=== PATIENT | female | born 1945 | race African-American/Black ===

== ENCOUNTER 2016-11-10 22:55 | Inpatient (IN) | payer OTHER, MEDICAID ==
[~2016-11-10] VITALS: Ht 165.1 cm; Wt 81.6 kg
[~2016-11-10 22:55] MED LIST: AMOXIL500 MG PO; ATIVAN1 MG PO; DONNATAL1 CA1 PO; FE-TABS325 MG PO; FLAGYL250 MG PO; GLUCOPHAGE500 MG PO; K-DUR10 MEQ PO; LEVSIN0.125 M3 PO; LISINOPRIL AND1 TA2 PO; LISINOPRIL/HCTZ1 TA2 PO; METFORMIN500 MG PO; NEXIUM40 MG PO; NORCO 10/325 MG1 TAB PO; NORCO 325 MG-51 TAB PO; PANCREASE PO; POTASSIUM CHLOR8 MEQ PO; PREMARIN0.625 M1 PO; PREVACID15 MG PO; PROTONIX TR40 MG PO; PROTONIX40 MG PO; RESTORIL30 MG PO; SOMA350 M1 PO; SOMA350 MG PO; VICODIN 5/500 M1 TAB PO; VICODIN ES 7501 TA1 PO; VICODIN-ES1 TAB PO
--- NOTE | 2016-11-10 23:14 | NUR ---
Dr. Oh evaluating patient
[2016-11-10 23:15] VITALS: BP 141/65
[2016-11-10] MEDS ORDERED: NACL 0.9% 1,000 ML IV SCH (23:16)
--- NOTE | 2016-11-10 23:18 | NUR ---
PT TAKEN TO BED 3
[2016-11-10] MEDS ORDERED: FAMOTIDINE 20 MG/2 ML VIAL IVP ONE (23:20)
[2016-11-10] MEDS ORDERED: ONDANSETRON 4 MG/2 ML VIAL IVP ONE (23:20)
--- NOTE | 2016-11-10 23:27 | NUR ---
PT IS 71Y F BIB SELF C/O AB PAIN X 3 DAYS WITH DIARRHEA. ABDOMINAL PAIN IS 10/10 PAIN. HX OF IBS, HIATAL HERNIA, DM, CHRONIC PANCREATITIS
--- NOTE | 2016-11-10 23:33 | NUR ---
X-Ray at bedside.
[2016-11-11] MEDS ORDERED: HYDROmorphone 1 MG/ML AMP IVP ONE (00:15)
--- NOTE | 2016-11-11 00:20 | NUR ---
Pt report given to CLARIZE RN. Transfer of care at this time.
--- NOTE | 2016-11-11 00:58 | NUR ---
CALLED MED-SURG FOR TO GIVE REPORT, NURSE WILL CALL BACK.
--- NOTE | 2016-11-11 01:00 | NUR ---
Patient will be admitted to care of DR. Hodan GUTIERREZ. Admited to MED-SURG. Will go to room 110B. Belongings list completed. Report GIVEN TO TIARRA GARCIA.
--- NOTE | 2016-11-11 01:02 | NUR ---
PT TRANSFERRED TO FLOOR VIA GURNEY ACCOMPANIED BY EMT, ON GUARDED CONDITION, VSS AT THIS TIME.
[2016-11-11 01:05] VITALS: BP 145/84
--- NOTE | 2016-11-11 01:05 | NUR ---
[facility] A 71 y/o ,Female, Appropriate. ALERT AWAKE ORIENTED X4. INITIAL ASSESSMENT DONE. NO S/S OF RESPIRATORY DISTRESS OR SOB NOTED. C/O ABDOMINAL PAIN SCALING 7/10. MEDICATED IN ER DILAUDID IVP. SKIN IS INTACT CLEAN DRY AND WARM TO TOUCH. PLAN OF CARE REVIEWED TO PT AND VERBALIZED UNDERSTANDING. oriented to call light, bed, phone,television, bathroom, smoking policy, visiting hours, procedures, ID bracelet on. Belongings list checked. CALL LIGHT WITHIN REACH. WILL CONTINUE TO MONITOR.
[2016-11-11] MEDS ORDERED: HYDROmorphone 1 MG/ML AMP IVP PRN (03:40)
[2016-11-11] MEDS ORDERED: LORazepam 1 MG TAB PO PRN (03:45)
[2016-11-11] MEDS ORDERED: DEXTROSE 50% 50 ML SYR IVP PRN (03:45)
[2016-11-11] MEDS ORDERED: ONDANSETRON 4 MG/2 ML VIAL IVP PRN (03:45)
[2016-11-11] MEDS ORDERED: ACETAMINOPHEN 325 MG TAB PO PRN (03:45)
[2016-11-11] MEDS ORDERED: HYDROcodone/APAP 5/325 MG 1 TAB TAB PO PRN (03:45)
[2016-11-11] MEDS ORDERED: HYDROcodone/APAP 10/325 MG 1 TAB TAB PO PRN (03:45)
[2016-11-11] MEDS: DEXT 5% /NACL 0.9% 1,000 ML IV SCH ×3 (04:37→23:00)
[2016-11-11] MEDS: HYDROmorphone 1 MG/ML AMP IVP PRN ×5 (04:38→21:19)
--- NOTE | 2016-11-11 05:30 | NUR ---
AM CARE RENDERED. BED LINEN CHANGED. INSTRUCTED PT TO REPOSITION. KEPT CLEAN AND DRY. CALL LIGHT WITHIN REACH. WILL CONTINUE TO MONITOR.
[2016-11-11] MEDS: PANTOPRAZOLE 40 MG TABEC PO SCH (05:48)
[2016-11-11] MEDS: INSULIN ASPART SLIDING SCALE 100 UNITS/ML VIAL SUBQ PRN ×2 (06:41→18:46)
[2016-11-11] MEDS: BLOOD GLUCOSE MONITORING 1 DEV DEV FS SCH ×4 (06:41→20:21)
--- NOTE | 2016-11-11 07:17 | NUR ---
PT HAS NO S/S OF ANY DISCOMFORT. PLAN OF CARE ENDORSED TO TANIA MAYEN AT BEDSIDE FOR CONTINUITY OF CARE.
--- NOTE | 2016-11-11 07:18 | NUR ---
RECEIVED REPORT FROM THE LOCOMOTIVE OILER NURSE AT BEDSIDE. PT IS AWAKE AND ALERT. I INTRODUCED MYSELF AND UPDATED THE BOARD. PT IS HAS AN IV ON L THUMB 24 G , NS @ 100ML. I DID NOTE THAT SHE IS NOT TO HAVE ANY BP OR BLOOD DRAWN ON THE R ARM. PT DOES NOT HAVE A SHUNT ON HER ARM AND IS NOT A DIALYSIS PT. WILL FURTHER INVESTIGATE. WILL CONTINUE TO MONITOR PT. ALL SAFETY MEASURES IN PLACE.
[2016-11-11 08:00] VITALS: BP 116/58
[2016-11-11] MEDS ORDERED: metFORMIN 500 MG TAB PO SCH (08:00)
--- NOTE | 2016-11-11 08:00 | NUR ---
PTS V/S IS IN WITHIN RANGE. PT IS C/O OF CONSTANT PAIN SINCE SHE'S BEEN HERE. WANTED TO SEE IF WE CAN UP THE DOSAGE ON THE DILAUDID. WILL TALK TO THE WHEN HE COMES IN. ACCORDING TO THE MACHINE MAINTENANCE REPAIRER NURSE, SHE LAST HAD HER DILAUDID AT 0438. SHE IS DUE AT 0838. PT SKIN IS INTACT. WILL GIVE ACCORDING TO SCHEDULE. PT MORNING TRAY IS HERE. WILL CONTINUE TO MONITOR PT.
[2016-11-11] MEDS: AMYLASE/LIPASE/PROTEASE 1 CAPDR PO SCH ×3 (08:39→17:24)
--- NOTE | 2016-11-11 08:40 | NUR ---
ADMINISTERED MORNING MEDS. PT C/O HAVING SEVERE PAIN, NOT GETTING BETTER SINCE BEING IN THE ER. LEVEL AT 06/01 SOMETIMES 07/01. I ADMINISTERED 1MG OF DILAUDID. PT SAID THAT SHE NEEDS MORE BC IT DOESN'T BRING THE PAIN LEVEL DOWN. I TOLD HER I WILL TALK TO HER
[2016-11-11] MEDS ORDERED: HYDROCHLOROTHIAZIDE 25 MG TAB PO SCH (09:00)
[2016-11-11] MEDS ORDERED: LISINOPRIL 20 MG TAB PO SCH (09:00)
[2016-11-11] MEDS ORDERED: [UNRECOGNIZED DRUG - OTHER] PO SCH (09:00)
--- NOTE | 2016-11-11 09:00 | NUR ---
SPOKE TO FRANCISCO J, CHARGE NURSE ABOUT HER SITUATION. TO SEE IF I SHOULD PAGE DR. GUTIERREZ. FRANCISCO J STATED THAT DR. Kirti OLIVEROS WILL BE COMING TO CONSULT FOR HER ABDOMINAL PAIN. WE WILL ADDRESS HER PAIN SITUATION WHEN HE ARRIVES.
--- NOTE | 2016-11-11 09:19 | NUR ---
PATIENT HAS BEEN SCREENED AND CATEGORIZED MODERATE NUTRITION RISK. PATIENT WILL BE SEEN WITHIN 3-5 DAYS OF ADMISSION. 11/12/16-11/14/[address]
--- NOTE | 2016-11-11 11:52 | NUR ---
PT C/O ANXIETY. WOULD LIKE HER ATIVAN. I ADMINISTERED 1 MG. WILL CONTINUE TO MONITOR HER.
--- NOTE | 2016-11-11 12:05 | NUR ---
DR. Kirti OLIVEROS CALLED. PT SHOULD BE NPO. WILL UPDATE STATUS. HE IS STILL ON HIS WAY TO SEE PT.
--- NOTE | 2016-11-11 13:30 | NUR ---
DR. OLIVEROS CAME AN SAW PT.
--- NOTE | 2016-11-11 14:30 | NUR ---
SPOKE TO DR. OLIVEROS ABOUT PAIN MANAGEMENT. ASKED ABOUT WHAT WE CAN DO FOR HER PAIN. ADVISED NOTHING AT THIS TIME. MAY WANT TO TALK TO DR. GUTIERREZ. IF HE WANTS TO GIVE HER MORE PAIN MEDS, FINE BUT IN HIS PERSPECTIVE, LEAVE IS.
[2016-11-11 16:00] VITALS: BP 119/56
[2016-11-11] MEDS: LORazepam 2 MG/ML VIAL IVP PRN ×2 (17:27→21:56)
--- NOTE | 2016-11-11 17:35 | NUR ---
PT TOLERATED MEDS WELL. BP 117/61, HR 65. PT C/O ANXIETY AND 9/10 PAIN.
--- NOTE | 2016-11-11 18:37 | NUR ---
PT RESTING IN BED. TALKING ON THE PHONE. PT C/O PAIN STILL. "BETTER THAN BEFORE BUT STILL NOT RELIEVED." STILL WAITING ON DR. LUCIO. WILL CONTINUE TO MONITOR PT.
--- NOTE | 2016-11-11 19:10 | NUR ---
ENDORSED PT TO THE NIGHTSHIFT NURSE AT BEDSIDE FOR CONTINUITY OF CARE. PT IS STABLE AND RESTING COMFORTABLY.
--- NOTE | 2016-11-11 19:30 | NUR ---
RECEIVED REPORT FROM TANIA MAYEN AT BEDSIDE. PT IS ALERT AWAKE ORIENTED X4. INITIAL ASSESSMENT DONE. NO S/S OF RESPIRATORY DISTRESS OR SOB NOTED. NO C/O PAIN OR ANY DISCOMFORT AT THIS TIME. PLAN OF CARE REVIEWED TO PT AND VERBALIZED UNDERSTANDING. CALL LIGHT WITHIN REACH. WILL CONTINUE TO MONITOR.
--- NOTE | 2016-11-11 19:50 | NUR ---
DR. GUTIERREZ CAME TO SEE PT AND NEW ORDERS WERE GIVEN (PLS SEE CPOE). NEW ORDERS NOTED AND CARRIED OUT. WILL CONTINUE TO MONITOR.
[2016-11-11] MEDS ORDERED: SERTRALINE 50 MG TAB PO SCH (21:00)
[2016-11-11] MEDS ORDERED: TEMAZEPAM 15 MG CAP PO SCH (21:00)
[2016-11-12] VITALS: BP 122/73
[2016-11-12] MEDS: LORazepam 2 MG/ML VIAL IVP PRN ×2 (01:55→14:48)
--- NOTE | 2016-11-12 02:18 | NUR ---
PT IS SLEEPING RIGHT NOW BUT EASILY AROUSABLE. NO S/S OF ANY DISCOMFORT AT THIS TIME. ALL NEEDS ARE ATTENDED. CALL LIGHT WITHIN REACH. WILL CONTINUE TO MONITOR.
[2016-11-12] MEDS: HYDROmorphone 1 MG/ML AMP IVP PRN ×3 (04:44→12:55)
--- NOTE | 2016-11-12 05:45 | NUR ---
AM CARE RENDERED. BED LINEN CHANGED. INSTRUCTED PT TO REPOSITION. KEPT CLEAN AND DRY. CALL LIGHT WITHIN REACH. WILL CONTINUE TO MONITOR.
[2016-11-12] MEDS: PANTOPRAZOLE 40 MG TABEC PO SCH (05:53)
[2016-11-12] MEDS: BLOOD GLUCOSE MONITORING 1 DEV DEV FS SCH ×3 (06:32→16:30)
[2016-11-12] MEDS: INSULIN ASPART SLIDING SCALE 100 UNITS/ML VIAL SUBQ PRN ×2 (06:33→11:42)
--- NOTE | 2016-11-12 07:16 | NUR ---
PT HAS NO S/S OF ANY DISCOMFORT. PLAN OF CARE ENDORSED TO REMBERTO RN AT BEDSIDE FOR CONTINUITY OF CARE.
--- NOTE | 2016-11-12 07:17 | NUR ---
PT ALERT AND ORIENTED X4, BREATHING EVENLY AND UNLABORED. NO SIGNS OF ACUTE DISTRESS. SKIN IS WARM AND DRY. NO EPISODE OF ANY NAUSEA OR VOMITING, DENIES OF ANY PAIN OR DISCOMFORT AT THIS TIME. ALL NEEDS ATTENDED, SAFETY PRECAUTIONS MAINTAINED. CALL LIGHT WITHIN REACH. KEPT ON NPO FOR PROCEDURE TODAY. Addendum: 11/12/16 at 1010 by Abdoulaye Crooks RN PT ALERT AND ORIENTED X4, BREATHING EVENLY AND UNLABORED. NO SIGNS OF ACUTE DISTRESS. SKIN IS WARM AND DRY. NO EPISODE OF ANY NAUSEA OR VOMITING, DENIES OF ANY PAIN OR DISCOMFORT AT THIS TIME. ALL NEEDS ATTENDED, SAFETY PRECAUTIONS MAINTAINED. CALL LIGHT WITHIN REACH. KEPT ON NPO EXCEPT MEDS ORDERED.
[2016-11-12 08:00] VITALS: BP 125/64
[2016-11-12] MEDS: AMYLASE/LIPASE/PROTEASE 1 CAPDR PO SCH ×3 (08:32→17:00)
[2016-11-12] MEDS: DEXT 5% /NACL 0.9% 1,000 ML IV SCH (09:45)
--- NOTE | 2016-11-12 10:00 | NUR ---
DUE MEDS GIVEN, CONTINUE TO MONITOR.
--- NOTE | 2016-11-12 12:00 | NUR ---
PT RESTING WELL N BED, NO SIGNS OF ACUTE DISTRESS. CONTINUE TO MONITOR.
--- NOTE | 2016-11-12 14:00 | NUR ---
PT AWAKE AND RESPONSIVE, PLACED ON A COMFORTABLE POSITION. CONTINUE TO MONITOR.
[2016-11-12 16:00] VITALS: BP 143/75
--- NOTE | 2016-11-12 16:00 | NUR ---
NOTED PT'S IV LEAKING. D/C'D IV ON LEFT HAND. WILL ATTEMPT TO REINSERT.
--- NOTE | 2016-11-12 16:40 | NUR ---
NOTED PT NOT INSIDE PT'S ROOM. CALLED SECURITY AND CHARGE NURSE MADE AWARE.
--- NOTE | 2016-11-12 16:45 | NUR ---
UNABLE TO FIND PATIENT IN HER ROOM , PRIOR TO THAT PATIENT WAS SEEN WALKING AROUND THE [address] WAY. CALLED HER CELLPHONE AND TALKING TO HER, SHE STATED SHE IS AROUND THE BUILDING WAS UPSET THAT SHE DIDN'T GET THE PAIN MEDS , SHE SAID SHE SAW A POLICE CAR AND HANG UP THE PHONE .PATIENT HAS NO IV LINE AND LEFT HER HOSPITAL GOWN ON THE BED. NOTIFIED THE SECURITY AND THEY ARE LOOKING FOR HER AT THIS TIME.
--- NOTE | 2016-11-12 17:00 | NUR ---
CHARGE NURSE CALLED INGA LAMAS AND MADE AWARE PT ELOPED. PER CHARGE NURSE, PT WITH INGA LAMAS AND WILL BRING BACK PT TO ER ENTRANCE.
--- NOTE | 2016-11-12 17:05 | NUR ---
INGA LAMAS CALLED BACK AND HE SAID PATIENT DOESN'T WANT TO COMEBACK TO THE HOSPITAL AND ALSO SHE REFUSED TO SIGN AMA .
--- NOTE | 2016-11-12 17:10 | NUR ---
SPOKE WITH DR. MATT Pettit AND MADE AWARE PT ELOPED. AND INGA Coto TO BRING PT BACK TO ER ENTRANCE. CHARGE NURSE AWARE AND SECURITY MADE AWARE.
--- NOTE | 2016-11-12 17:11 | NUR ---
WAS MADE AWARE BY CHARGE NURSE PT REFUSED TO COME BACK TO THE ER ENTRANCE. WILL NOTIFY MD AND FAMILY.
--- NOTE | 2016-11-12 17:32 | NUR ---
CALLED JENNY SALMERON [phone]. NO RESPONSE. UNABLE TO LEAVE A MESSAGE.
== END 2016-11-12 16:40 | disposition left against medical advice (07) | DRG 439 ==
LOC: MED 23:04 → MTU 11-11 00:41
PROVIDERS: ADMIT Preventive Medicine Preventive Medicine/Occupational Environmental Medicine; ATTEND Preventive Medicine Preventive Medicine/Occupational Environmental Medicine
DX: K85.90 Acute pancreatitis without necrosis or infection, unspecified (principal); F11.20 Opioid dependence, uncomplicated; K86.1 Other chronic pancreatitis; E87.6 Hypokalemia; E11.65 Type 2 diabetes mellitus with hyperglycemia; K21.9 Gastro-esophageal reflux disease without esophagitis; I10 Essential (primary) hypertension; M17.9 Osteoarthritis of knee, unspecified; K58.1 Irritable bowel syndrome with constipation; K44.9 Diaphragmatic hernia without obstruction or gangrene; K30 Functional dyspepsia; K58.0 Irritable bowel syndrome with diarrhea; E66.9 Obesity, unspecified; Z68.30 Body mass index [BMI] 30.0-30.9, adult; Z90.49 Acquired absence of other specified parts of digestive tract; Z88.6 Allergy status to analgesic agent; Z88.1 Allergy status to other antibiotic agents; Z79.899 Other long term (current) drug therapy; Z87.442 Personal history of urinary calculi; Z76.5 Malingerer [conscious simulation]

== ENCOUNTER 2017-01-07 11:37 | Inpatient (IN) | payer OTHER, MEDICAID ==
[~2017-01-07] VITALS: Ht 167.6 cm; Wt 81.6 kg
[2017-01-07 12:13] VITALS: BP 139/63
--- NOTE | 2017-01-07 15:00 | NUR ---
Patient ambulated to bed 5.
--- NOTE | 2017-01-07 15:05 | NUR ---
Patient being evaluated by physician at bedside.
--- NOTE | 2017-01-07 15:09 | NUR ---
71/F presents to ED for evaluation of epigastric pain radiating to LUQ for the past 2 days. Pt states the pain started on Friday and is now worse. Pt has hx of pancreatitis, IBS, hiatal hernia. Pt also c/o nausea and diarrhea. Pt also c/o chills, denies fever. c/o decrease in appetite and migraine headache. Patient abdomen soft, tender with palpation, active bowel sounds x4 quadrants. Pt is AOX4, ambulatory with steady gait. VSS.
[2017-01-07] MEDS ORDERED: HYDROmorphone 1 MG/ML AMP IM ONE (15:10)
--- NOTE | 2017-01-07 15:16 | NUR ---
Pt is upset that we are not drawing labs or inserting an IV. Pt states "I am dehydrated and I can't keep even water down." Pt also states "I told him what the problem is! I have pancreatitis. I always get labs when I come here." Dr. Diaz made aware. New orders received.
--- NOTE | 2017-01-07 15:26 | NUR ---
Patient returned from x-ray and placed back into bed 5.
--- NOTE | 2017-01-07 15:28 | NUR ---
Upon arrival I advised the patient the finisher screwdown would be here soon to draw some labs. Pt verbalized understanding.
--- NOTE | 2017-01-07 15:50 | NUR ---
Lab at bedside.
--- NOTE | 2017-01-07 16:20 | NUR ---
Pt continues to c/o unrelieved pain 07/01.
[2017-01-07] MEDS ORDERED: NACL 0.9% 1,000 ML IV ONE (16:25)
--- NOTE | 2017-01-07 17:04 | NUR ---
Pt continues to c/o unrelieved pain 07/01. Dr. Diaz made aware. No new orders at this time.
--- NOTE | 2017-01-07 17:40 | NUR ---
Pt c/o pain to IV site. Swelling to right hand. IV fluids discontinued. IV removed, catheter intact and site benign. Applied folded 4x4 gauze and tape to stop bleeding.
--- NOTE | 2017-01-07 17:47 | NUR ---
security officer supervisor contacted for PICC line insertion.
--- NOTE | 2017-01-07 17:50 | NUR ---
RECEIVED REPORT FROM THE ER NURSE. WILL BE BRINGING PT ONTO THE FLOOR VERY SOON. WILL GET ROOM READY.
--- NOTE | 2017-01-07 17:53 | NUR ---
Patient will be admitted to care of Dr. Gupta. Admited to TELE. Will go to room 111-A. Belongings list completed. Report to Didi MAYEN.
--- NOTE | 2017-01-07 18:00 | NUR ---
CAME ON THE FLOOR WITH ER NURSES. PT IS ALERT AND ORIENTED. PT HAS NO IV ACCESS. THE ER NURSE CALLED THE PICC LINE NURSE. CONSENT SIGNED IN CHART. PT IS ACCOMPANIED BY TWIN SISTER. PT V/S IS 98.2F, 149/72; 70; 99%. PT HAS PAIN IN THE EPIGASTRIC AREA. PAIN 10/10. APPLIED THE TELE MONITOR AND BROWN SOCKS. APPLIED ALLERGY BAND. COVERED HER UP IN A WARM BLANKET. MRSA SCREENING DONE. WILL CONTINUE TO MONITOR PT.
[2017-01-07 18:10] VITALS: BP 149/72
--- NOTE | 2017-01-07 19:21 | NUR ---
ENDORSED PT TO THE CLEAT FEEDER NURSE. PT IS RESTING IN BED WITH SISTER AT BEDSIDE. PT IS IN STABLE CONDITION.
--- NOTE | 2017-01-07 19:24 | NUR ---
RECEIVED FROM AM RN IN BED AWAKE AND ALERT SITTING UP IN BED. FRIEND AT BEDSIDE. VERBALIZING WELL . CALL LIGHT WITH IN REACH AND CARE PLANS FOR THE NIGHT EXPLAINED TO HER. ROM X 4. CLEAR SPEECH. TELEMETRY MONITORING. WAITING FOR PICC LINE NURSE TO DO PROCEDURE. ENCOURAGED TO CALL FOR ANY HELP SHE MAY NEED OR IF IN PAIN. "OK" SKIN INTACT AND NO EDEMA NOTED. DX. OF ACUTE PANCREATITIS. PT. GIVEN IM DILAUDID IN ER.
[2017-01-07 20:00] VITALS: BP 148/70
[2017-01-07] MEDS ORDERED: LORazepam 2 MG/ML VIAL IVP PRN (20:00)
[2017-01-07] MEDS ORDERED: MORPHINE SULFATE 2 MG/ML SYR IVP PRN (20:00)
[2017-01-07] MEDS ORDERED: HYDROcodone/APAP 5/325 MG 1 TAB TAB PO PRN (20:00)
[2017-01-07] MEDS ORDERED: ACETAMINOPHEN 325 MG TAB PO PRN (20:00)
[2017-01-07] MEDS ORDERED: LORazepam 1 MG TAB PO SCH (20:00)
[2017-01-07] MEDS ORDERED: ONDANSETRON 4 MG/2 ML VIAL IVP PRN (20:00)
--- NOTE | 2017-01-07 20:00 | NUR ---
Jose D ESPARZA IN HERE TO SEE PT. WITH ORDERS . IVF SITE TO RIGHT HAND #24 INSERTED BY CHARGE NURSE. GOOD BLOOD RETURN . TOLERATED WELL. PT. STATED THAT SHE WANTS AN IV PAIN RELIEVER AND HER SLEEPING PILL. PT. SAYS " I AM NEEDING MY PAIN RELIEVER AND SLEEPING PILL. " WILL MEDICATE REQUESTED.
[2017-01-07] MEDS ORDERED: DEXTROSE 50% 50 ML SYR IVP PRN (20:10)
[2017-01-07] MEDS ORDERED: INSULIN LISPRO SLIDING SCALE 100 UNITS/ML VIAL SUBQ PRN (20:10)
[2017-01-07] MEDS: BLOOD GLUCOSE MONITORING 1 DEV DEV FS SCH (20:38)
[2017-01-07] MEDS: metFORMIN 500 MG TAB PO SCH (20:42)
[2017-01-07] MEDS: DEXT 5% /NACL 0.9% 1,000 ML IV SCH (20:48)
[2017-01-07] MEDS ORDERED: TEMAZEPAM 15 MG CAP PO SCH (21:00)
--- NOTE | 2017-01-07 21:00 | NUR ---
AWAKE AT THIS TIME. APPLIED SEQUENTIALS BILATERALLY TO LOWER EXTREMITIES. EXPLAINED PROS AND CONS OF USING IT. ROM X 4. "OK" TELEMETRY MONITORING ORDERED FROM ER.
--- NOTE | 2017-01-07 22:58 | NUR ---
SLEEPING AT THIS TIME. NO RESTLESSNESS NOTED.
[2017-01-08] MEDS: HYDROcodone/APAP 10/325 MG 1 TAB TAB PO PRN ×2 (00:17→12:53)
--- NOTE | 2017-01-08 00:17 | NUR ---
PT. AWAKE AND DEMANDING TO HAVE PAIN RELIEVER AT THIS TIME. STATING" I HAVE THAT PAIN AGAIN" EXPLAINED THAT HER MORPHINE IV IS NOT DUE YET. PT. REQUESTED FOR NORCO TAB. WILL MEDICATE REQUESTED AT THIS TIME. A/O X 4.
[2017-01-08 00:18] VITALS: BP 98/50
--- NOTE | 2017-01-08 00:39 | NUR ---
PAGED AND ABLE TO TALK WITH MD MATT CANADA RE: PT. WANTS DILAUDID IVP INSTEAD OF NORCO OR MORPHINE IVP. PT. STATED THAT ALL OF THOSE ARE NOT EFFECTIVE. WITH NEW ORDER TO D/C MORPHINE AND GIVE DILAUDID IVP INSTEAD.
[2017-01-08 01:39] VITALS: BP 116/60
[2017-01-08] MEDS: HYDROmorphone 1 MG/ML AMP IVP PRN ×2 (01:43→08:12)
--- NOTE | 2017-01-08 04:43 | NUR ---
PT. SLEEPING WELL POST DILAUDID 1 MG GIVEN EARLIER. NO FURTHER COMPLAINTS DONE. TELEMETRY MONITORING. NO SOB.
[2017-01-08] MEDS: BLOOD GLUCOSE MONITORING 1 DEV DEV FS SCH ×2 (05:41→11:30)
[2017-01-08] MEDS: DEXT 5% /NACL 0.9% 1,000 ML IV SCH (05:47)
--- NOTE | 2017-01-08 06:05 | NUR ---
PT. AWAKE AT THIS TIME RT PRINCIPAL CLERK IN HERE TO GET BLOOD SPECIMEN. IVF SITE TO RIGHT HAND#24 INTACT AND NO INFILTRATION. GOOD BLOOD RETURN. TELEMETRY MONITORING. DENIES PAIN AT THIS TIME. SLEPT WELL AFTER GIVEN DILAUDID IVP EARLIER. ABLE TO VERBALIZE NEEDS WELL.
[2017-01-08] MEDS ORDERED: PANTOPRAZOLE 40 MG TABEC PO SCH (06:30)
--- NOTE | 2017-01-08 07:13 | NUR ---
ENDORSED TO THE NEXT RN FOR CONTINUITY OF CARE. SLEEPING. ABLE TO VERBALIZE NEEDS WELL. TELEMETRY MONITORING.
--- NOTE | 2017-01-08 07:15 | NUR ---
RECEIVED REPORT FROM TIARRA ABREU. PT IS A/OX4, RESTING IN BED, IV ON RT HAND, PATENT, INTACT, FLUSHING WELL, NO S/S OF RESPIRATORY DISTRESS OR DISCOMFORT NOTED, DISCUSSED PLAN OF CARE WITH PT, PT VERBALIZED UNDERSTANDING, CALL LIGHT IS WITHIN REACH, WILL CONTINUE TO MONITOR.
[2017-01-08 08:00] VITALS: BP 114/60
--- NOTE | 2017-01-08 08:00 | NUR ---
PATIENT HAS BEEN SCREENED AND CATEGORIZED MODERATE NUTRITION RISK. PATIENT WILL BE SEEN WITHIN 3-5 DAYS OF ADMISSION. 01/10/17-01/12/[address]
[2017-01-08] MEDS: metFORMIN 500 MG TAB PO SCH (08:11)
[2017-01-08] MEDS: AMYLASE/LIPASE/PROTEASE 1 CAPDR PO SCH ×2 (08:11→12:53)
--- NOTE | 2017-01-08 08:12 | NUR ---
DUE MEDICATIONS GIVEN, PT TOLERATED, CALL LIGHT WITHIN REACH, WILL CONTINUE TO MONITOR.
[2017-01-08] MEDS ORDERED: LISINOPRIL 20 MG TAB PO SCH (09:00)
[2017-01-08] MEDS ORDERED: HYDROCHLOROTHIAZIDE 25 MG TAB PO SCH (09:00)
[2017-01-08] MEDS ORDERED: [UNRECOGNIZED DRUG - OTHER] PO SCH (09:00)
--- NOTE | 2017-01-08 09:22 | NUR ---
PAGED Hodan SHARP TO INFORM HIM THE PATIENT POTASSIUM WAS 3.0.
--- NOTE | 2017-01-08 09:24 | NUR ---
RECEIVED PHONE CALL FROM DR. GUTIERREZ. PER DR. WONG ORDER K RIDER [id number], ONE TIME.
[2017-01-08] MEDS ORDERED: KCL 20 MEQ/WATER INJ PREMIX 200 ML IV ONE (09:25)
--- NOTE | 2017-01-08 10:30 | NUR ---
PT SLEEPING AT THIS TIME.
[2017-01-08] MEDS ORDERED: POTASSIUM CHLORIDE 40 MEQ, LIDOCAINE 1% 25 MG in NACL 0.9% 250 ML IV ONE (10:55)
[2017-01-08] MEDS ORDERED: PERCOCET 325 MG1 TA4 PO (11:23)
[2017-01-08 12:00] VITALS: BP 111/56
--- NOTE | 2017-01-08 12:53 | NUR ---
PT COMPLAINED OF A 8/10 PAIN LEVEL, WILL MEDICATE WITH PRN PAIN MEDICATIONS AT THIS TIME.
--- NOTE | 2017-01-08 13:45 | NUR ---
DISCHARGED INSTRUCTIONS GIVEN, REMOVED ID WRIST BAND, REMOVED IV, CATHETER TIP INTACT. PT STATED SHE WAS JUST WAITING ON HER SISTER TO SHOW UP AND PICK HER UP.
--- NOTE | 2017-01-08 15:43 | NUR ---
PT STATED SHE WAS STILL WAITING ON HER SISTER TO PICK HER UP.
--- NOTE | 2017-01-08 18:00 | NUR ---
PT SISTER HERE TO PICK HER UP, PT STABLE UPON DISCHARGE.
== END 2017-01-08 14:00 | disposition home or self-care (01) | DRG 438 ==
LOC: MED 11:37 → MTU 17:12
PROVIDERS: ADMIT Preventive Medicine Preventive Medicine/Occupational Environmental Medicine; ATTEND Preventive Medicine Preventive Medicine/Occupational Environmental Medicine
DX: K85.90 Acute pancreatitis without necrosis or infection, unspecified (principal); N17.0 Acute kidney failure with tubular necrosis; E87.1 Hypo-osmolality and hyponatremia; E11.9 Type 2 diabetes mellitus without complications; K21.9 Gastro-esophageal reflux disease without esophagitis; I10 Essential (primary) hypertension; K58.9 Irritable bowel syndrome, unspecified; G89.29 Other chronic pain; E87.6 Hypokalemia; K86.1 Other chronic pancreatitis; D64.9 Anemia, unspecified; Z88.6 Allergy status to analgesic agent; Z88.1 Allergy status to other antibiotic agents; Z87.442 Personal history of urinary calculi; Z88.8 Allergy status to other drugs, medicaments and biological substances; Z79.899 Other long term (current) drug therapy

== ENCOUNTER 2017-05-04 03:05 | Inpatient (IN) | payer OTHER, MEDICAID ==
[~2017-05-04] VITALS: Ht 165.1 cm; Wt 76.7 kg
[2017-05-04] VITALS (7 sets, daily range): BP systolic 142–167; BP diastolic 62–81
[~2017-05-04 03:05] MED LIST changes: +ACET-3783 PO; -AMOXIL500 MG PO; -ATIVAN1 MG PO; -DONNATAL1 CA1 PO; -FE-TABS325 MG PO; -FLAGYL250 MG PO; -GLUCOPHAGE500 MG PO; +HYDR-2362 PO; +HYDR-4452 PO; -K-DUR10 MEQ PO; -LEVSIN0.125 M3 PO; -LISINOPRIL AND1 TA2 PO; -LISINOPRIL/HCTZ1 TA2 PO; +LORA-476 PO; +METF500T64 PO; -METFORMIN500 MG PO; -NEXIUM40 MG PO; -NORCO 10/325 MG1 TAB PO; -NORCO 325 MG-51 TAB PO; +PAN PO; -PANCREASE PO; +PANT40EC PO; -POTASSIUM CHLOR8 MEQ PO; -PREMARIN0.625 M1 PO; -PREVACID15 MG PO; -PROTONIX TR40 MG PO; -PROTONIX40 MG PO; -RESTORIL30 MG PO; -SOMA350 M1 PO; -SOMA350 MG PO; +TEMA30CA23 PO; -VICODIN 5/500 M1 TAB PO; -VICODIN ES 7501 TA1 PO; -VICODIN-ES1 TAB PO
--- NOTE | 2017-05-04 03:05 | NUR ---
Patient was BIBA and taken to bed 07 via gurney per EMS.
--- NOTE | 2017-05-04 03:15 | NUR ---
BIBA C/O ABD PAIN, N/V, DIARRHEA X1 DAY . SKIN IS PINK/WARM/DRY; AAOX4, LUNGS CLEAR BL; HR EVEN AND REGULAR; PT DENIES ANY FEVER, CP, SOB, OR COUGH AT THIS TIME; PATIENT STATES PAIN OF 10/10 AT THIS TIME; PATIENT POSITIONED FOR COMFORT; HOB ELEVATED; BEDRAILS UP X2; BED DOWN. ER MD MADE AWARE OF PT STATUS.
--- NOTE | 2017-05-04 03:26 | NUR ---
DR. STONE AT BEDSIDE
[2017-05-04] MEDS ORDERED: ONDANSETRON 4 MG/2 ML VIAL IVP ONE (03:30)
[2017-05-04] MEDS ORDERED: NACL 0.9% 500 ML IV ONE (03:30)
[2017-05-04] MEDS ORDERED: fentaNYL 0.05 MG/ML VIAL IVP ONE ×2 (03:30→05:45)
--- NOTE | 2017-05-04 03:49 | NUR ---
LAB AT BEDSIDE
--- NOTE | 2017-05-04 04:00 | NUR ---
TALKED TO DR. STONE REGARDING URINE COLLECTION PER MD MAY DO IN AND OUT CATH , PT AGREED WITH IT.
[2017-05-04] MEDS ORDERED: MORPHINE SULFATE 2 MG/ML SYR IVP ONE (04:10)
--- NOTE | 2017-05-04 04:11 | NUR ---
RELAYED TO DR. STONE RESULT OF URINE DIPSTICK
--- NOTE | 2017-05-04 04:27 | NUR ---
PT FOR CT VIA DA, PT AAO, 06/01
[2017-05-04 04:35] LABS: HEMATOCRIT 37.7 % (36-48); MEAN CORPUSCULAR HEMOGLOBIN 31 pg (27-31); MEAN CORPUSCULAR HGB CONC 32 g/dL (33-37); MEAN CORPUSCULAR VOLUME 98 fL (80-94); PLATELET COUNT (AUTO) 346 K/uL (140-450); RED BLOOD CELL COUNT(AUTO) 3.84 MIL/uL (4.20-5.40); RED CELL DISTRIBUTION WIDTH 14.1 % (11.6-13.7); WHITE BLOOD COUNT (AUTO) 7.5 K/uL (4.8-10.8)
--- NOTE | 2017-05-04 04:35 | NUR ---
[facility]
[2017-05-04 04:39] LABS: APPEARANCE,URINE HAZY (CLEAR); BILIRUBIN,URINE NEGATIVE (NEGATIVE); BLOOD, URINE TRACE-L (NEGATIVE); COLOR,URINE YELLOW (YELLOW); LEUKOCYTE ESTERASE ,URINE TRACE (NEGATIVE); NITRITE, URINE POSITIVE (NEGATIVE); PROTEIN,URINE 1+ (NEGATIVE); UGLUCOSE NEGATIVE (NEGATIVE); UROBILINOGEN,URINE 0.2 EU/dL (0.2 - 1)
[2017-05-04 04:43] LABS: ANION GAP 19.8 (8-16); CALCIUM 10.7 mg/dL (8.5-10.1); CARBON DIOXIDE 22.7 mmol/L (21-32); CHLORIDE 100 mmol/L (98-107); CREATININE 0.9 mg/dL (0.6-1.3); GLUCOSE 202 mg/dL (74-106); POTASSIUM 3.5 mmol/L (3.5-5.1); SODIUM SERUM 139 mmol/L (136-145); UREA NITROGEN, BLOOD 12 mg/dL (7-18)
[2017-05-04 04:45] LABS: LYMPHOCYTES % (MANUAL) 24 % (20-46); MONOCYTES % (MANUAL) 4 % (5-12); NEUTROPHILS % (MANUAL) 72 (43-65)
[2017-05-04 04:51] LABS: ALANINE AMINOTRANSFERASE 19 U/L (14-59); ALBUMIN 3.9 g/dL (3.4-5.0); ALKALINE PHOSPHATASE 71 U/L (46-116); ASPARTATE AMINOTRANSFERASE 16 U/L (15-37); INR 1.1 (0.8-1.2); LIPASE 157 U/L (73-393); PROTHROMBIN TIME 11.5 secs (10.8-13.4); TOTAL BILIRUBIN 0.3 mg/dL (0.0-1.0); TOTAL PROTEIN, SERUM 8.1 g/dL (6.4-8.2)
[2017-05-04 04:53] LABS: BACTERIA,URINE 4+ /HPF (None Seen); RBC,URINE 3-10 (FEW) /HPF (0-5); SQUAMOUS EPITHELIAL CELL,UR 4-10 (MOD) /LPF (0-3 (FEW))
[2017-05-04] MEDS ORDERED: LEVOFLOXACIN 500 MG/D5W PREMIX 100 ML IV ONE (04:55)
[2017-05-04] MEDS ORDERED: PANTOPRAZOLE 40 MG INJ VIAL IVP ONE (05:05)
[2017-05-04] MEDS ORDERED: LORazepam 1 MG TAB PO SCH (05:20)
[2017-05-04] MEDS ORDERED: HYDROcodone/APAP 10/325 MG 1 TAB TAB PO PRN (05:20)
[2017-05-04] MEDS ORDERED: NON-FORMULARY ITEM (Oxycodone HCl/Acetaminophen (Percocet 10-325 mg Tablet) 1 TAB) PO SCH (05:20)
--- NOTE | 2017-05-04 05:22 | NUR ---
PT CALM, IVANTIBIOTIC ONGOING, NO VOMITTING NOTED, ENDORSE TO JOSEPH
[2017-05-04] MEDS: NACL 0.9% 1,000 ML IV SCH ×2 (05:34→20:44)
[2017-05-04] MEDS ORDERED: HYDROcodone/APAP 7.5/325 MG 1 TAB PO PRN (05:35)
[2017-05-04] MEDS ORDERED: ACETAMINOPHEN 325 MG TAB PO PRN (05:35)
--- NOTE | 2017-05-04 05:52 | NUR ---
Patient will be admitted to care of DR KENNY. Admited to TELE. Will go to room 112B. Belongings list completed. Report to LOIS.
--- NOTE | 2017-05-04 06:13 | NUR ---
RECEIVED FROM ER PER DA AWAKE AND ALERT. FEMALE PT. WITH DIAGNOSIS OF GASTRITIS AND UTI . C/O ABDOMINAL PAIN AND MEDICATED IN ER. CALL LIGHT WITH IN REACH AND CARE PLANS FOR THE NIGHT DISCUSSED WITH HER. ORIENTED TO ROOM, CALL LIGHT AND CARE GIVERS. AFEBRILE. ON TELEMETRY MONITORING. IVF SITES TO RAC AND RW ALL 20 #. SKIN INTACT.
[2017-05-04] MEDS ORDERED: PANTOPRAZOLE 40 MG TABEC PO SCH (06:30)
--- NOTE | 2017-05-04 07:20 | NUR ---
RECEIVED PT IN BED AWAKE. ALERT ORIENTED X4. NO SOB NOTED. POSITIVE BOWEL SOUNDS NOTED ON FOUR QUADRANTS. PT AMBULATORY. SAFETY PRECAUTION IN PLACE. CALL LIGHT WITHIN REACH. NO SIGNS AND SYMPTOMS OF ACUTE PAIN OR DISCOMFORT NOTED AT THIS TIME.
[2017-05-04] MEDS ORDERED: AMYLASE/LIPASE/PROTEASE 1 CAPDR PO SCH ×2 (08:00→09:25)
[2017-05-04 08:04] LABS: CHOL/HDL RATIO 3.2 (1-4.5); FREE T4 (FREE THYROXINE) 0.96 ng/dL (0.76-1.46); MAGNESIUM 1.5 mg/dL (1.8-2.4); PHOSPHORUS 3.2 mg/dL (2.5-4.9); THYROID STIMULATING HORMONE 0.34 uIU/mL (0.34-3.74)
[2017-05-04] MEDS ORDERED: metFORMIN 500 MG TAB PO SCH ×2 (09:00→09:24)
[2017-05-04] MEDS ORDERED: [UNRECOGNIZED DRUG - OTHER] PO SCH (09:00)
[2017-05-04] MEDS ORDERED: TEMAZEPAM 15 MG CAP PO PRN (09:10)
[2017-05-04] MEDS ORDERED: LORazepam 1 MG TAB PO PRN (09:10)
[2017-05-04] MEDS ORDERED: MAG SULF 2000 MG/WATER PREMIX 50 ML IV SCH (09:20)
[2017-05-04] MEDS ORDERED: PANTOPRAZOLE 40 MG INJ VIAL IVP SCH (09:21)
[2017-05-04] MEDS ORDERED: DEXTROSE 50% 50 ML SYR IVP PRN (09:25)
[2017-05-04] MEDS: HYDROCHLOROTHIAZIDE 25 MG TAB PO SCH (09:40)
[2017-05-04] MEDS: LISINOPRIL 20 MG TAB PO SCH (09:41)
[2017-05-04] MEDS: DOCUSATE SODIUM 100 MG GELCAP PO SCH ×2 (09:41→20:17)
[2017-05-04] MEDS: LACTOBACILLUS RHAMNOSUS GG 1 EACH CAP PO SCH (09:41)
[2017-05-04] MEDS: oxyCODONE/APAP 5/325 MG 1 TAB TAB PO PRN (09:43)
[2017-05-04] MEDS: ONDANSETRON 4 MG/2 ML VIAL IVP PRN (11:09)
[2017-05-04] MEDS: BLOOD GLUCOSE MONITORING 1 DEV DEV FS SCH ×3 (11:30→20:40)
[2017-05-04] MEDS ORDERED: LIDOCAINE VISCOUS 2% 20 ML UDC PO PRN (11:45)
[2017-05-04] MEDS ORDERED: ALUMINUM HYD/MAG/SIMETHICONE 30 ML UDC PO PRN (11:45)
[2017-05-04] MEDS ORDERED: DICYCLOMINE HCL LIQUID 10 MG/5 ML UDC PO PRN (11:45)
--- NOTE | 2017-05-04 12:30 | NUR ---
PT VERBALIZED THAT SHE DOESN'T WANT TO TAKE ANY MORE PO MEDS AND SHE JUST WANTS HER PAIN SHOT. DR. MCELROY MADE AWARE AND ACCORDING TO HER THEY ALREADY SPOKE WITH PT REGARDING HER PAIN MEDICATION AND PT CAN SIGN AMA IF SHE WANTS. ORDERED GI COCKTAIL TO PT. EXPLAINED TO PT BENEFITS OF NEW MEDS. PT VERBALIZED UNDERSTANDING AND TOOK THE GI COCKTAIL (MAALOX, LIDOCAINE, BENTYL). DUE MED CARAFATE AND PANCREALIPASE HELD FOR NOW AND WILL GIVE AFTER AN HOUR, PHARMACIST LAURI AWARE.
[2017-05-04] MEDS: INSULIN LISPRO SLIDING SCALE 100 UNITS/ML VIAL SUBQ PRN ×2 (12:37→20:43)
[2017-05-04] MEDS: AMYLASE/LIPASE/PROTEASE 1 CAPDR PO SCH ×2 (13:42→16:58)
[2017-05-04] MEDS: SUCRALFATE 1 GM TAB PO SCH ×3 (13:42→20:17)
--- NOTE | 2017-05-04 13:45 | NUR ---
DR. MCELROY CAME TO SEE PT AND EXPLAINED TO PT PLAN OF CARE AND TREATMENT. EXPLAINED TO PT THE NEED TO REQUEST RECORDS FROM [facility] MARCH 2017 PER MD ORDER. PT VERBALIZED UNDERSTANDING AND SIGNED CONSENT. CONSENT FAXED TO [facility] PER CONSTRUCTION EQUIPMENT MECHANIC, AWAITING RESPONSE.
--- NOTE | 2017-05-04 15:38 | NUR ---
PT COMPLAINED OF ABDOMINAL PAIN 05/01. OFFERED PERCOCET 10MG ORDERED PRN FOR SEVERE PAIN BUT PT REFUSED. SHE SAID THAT SHE WANTS AN IV PAIN MEDICATION. WILL LET MD KNOW.
[2017-05-04] MEDS: metFORMIN 500 MG TAB PO SCH (16:58)
[2017-05-04] MEDS: MORPHINE SULFATE 2 MG/ML SYR IVP PRN ×3 (16:58→23:46)
--- NOTE | 2017-05-04 16:58 | NUR ---
DR. MCELROY PUT IN AN ORDER FOR MORPHINE 1MG IVP FOR SEVERE PAIN. ADMINISTERED TO PT. WILL CONTINUE TO MONITOR PAIN.
[2017-05-04] MEDS ORDERED: TEMAZEPAM 15 MG CAP PO SCH (17:00)
--- NOTE | 2017-05-04 19:29 | NUR ---
PT KEPT CLEAN, DRY AND COMFORTABLE, NEEDS ATTENDED. ENDORSED TO NEXT SHIFT ON STABLE CONDITION FOR CONTINUITY OF CARE.
--- NOTE | 2017-05-04 19:30 | NUR ---
RECEIVED REPORT FROM AM NURSE. PT IS ALERT, ORIENTED, AND ABLE TO MAKE NEEDS KNOWN. NO S/S OF DISTRESS. RE-ORIENTED PATIENT TO THE UNIT, VERBALIZED UNDERSTANDING. WILL CONTINUE TO MONITOR. ALL NEEDS ATTENDED. CALL LIGHT WITHIN REACH. SAFETY CHECKS IN PLACE.
[2017-05-04] MEDS: PANTOPRAZOLE 40 MG INJ VIAL IVP SCH (20:17)
--- NOTE | 2017-05-04 20:30 | NUR ---
DUE MEDS GIVEN, WELL TOLERATED. GAVE PRN MORPHINE FOR ABDOMINAL PAIN. WILL CONTINUE TO MONITOR. ALL NEEDS ATTENDED. CALL LIGHT WITHIN REACH. SAFETY CHECKS IN PLACE.
[2017-05-05] MEDS ORDERED: ALUMINUM HYD/MAG/SIMETHICONE 30 ML UDC PO PRN ×2 (00:30→08:45)
--- NOTE | 2017-05-05 00:30 | NUR ---
INFORMED DR. HALL THAT PT IS COMPLAINING OF BELCHING, GAVE AN ORDER OF [place]. NOTED.
--- NOTE | 2017-05-05 02:22 | NUR ---
MADE ROUNDS. PT ASLEEP. NO S/S OF DISTRESS. WILL CONTINUE TO MONITOR FOR ANY CHANGES. CALL LIGHT WITHIN REACH.
[2017-05-05] MEDS: MORPHINE SULFATE 2 MG/ML SYR IVP PRN ×5 (03:07→18:16)
--- NOTE | 2017-05-05 03:07 | NUR ---
PT COMPLAINING OF ABDOMINAL PAIN, GAVE MORPHINE 1 MG. WILL CONTINUE TO MONITOR FOR CHANGES.
[2017-05-05] MEDS: ONDANSETRON 4 MG/2 ML VIAL IVP PRN ×5 (03:39→21:22)
--- NOTE | 2017-05-05 04:20 | NUR ---
PT'S IV ON THE RIGHT HAND WAS NOTED TO BE LEAKING AT THE SITE, SAW THAT THE IV WAS OUT. IV CANNULA INTACT. TRIED THE SALINE LOCK ON THE RIGHT AC, AND THE LINE WAS NOT PATENT. REMOVED THE IV LINE, IV CANNULA INTACT. INSERTED A 24 G ON THE LEFT HAND.
[2017-05-05 05:55] LABS: BASOPHILS # (AUTO) 0.2 K/uL (0.00-0.22); BASOPHILS % (AUTO) 3.1 % (0.0-2.0); EOSINOPHILS % (AUTO) 0.7 % (0.0-4.0); HEMATOCRIT 34.7 % (36-48); HEMOGLOBIN 11.2 g/dL (12.0-16.0); LYMPHOCYTES # (AUTO) 1.6 K/uL (2.5-16.5); LYMPHOCYTES % (AUTO) 22.6 % (20.5-51.1); MEAN CORPUSCULAR HEMOGLOBIN 32 pg (27-31); MEAN CORPUSCULAR HGB CONC 32 g/dL (33-37); MEAN CORPUSCULAR VOLUME 98 fL (80-94); MONOCYTES # (AUTO) 0.6 K/uL (0.8-1.0); MONOCYTES % (AUTO) 8.2 % (1.7-9.3); NEUTROPHILS # (AUTO) 4.7 K/uL (1.8-7.7); NEUTROPHILS % (AUTO) 65.4 % (42.2-75.2); PLATELET COUNT (AUTO) 315 K/uL (140-450); RED BLOOD CELL COUNT(AUTO) 3.53 MIL/uL (4.20-5.40); RED CELL DISTRIBUTION WIDTH 14.1 % (11.6-13.7); WHITE BLOOD COUNT (AUTO) 7.1 K/uL (4.8-10.8)
[2017-05-05 06:07] LABS: CALCIUM 9.1 mg/dL (8.5-10.1); CARBON DIOXIDE 25.6 mmol/L (21-32); CHLORIDE 100 mmol/L (98-107); CREATININE 0.9 mg/dL (0.6-1.3); GLUCOSE 160 mg/dL (74-106); POTASSIUM 3.6 mmol/L (3.5-5.1); SODIUM SERUM 135 mmol/L (136-145); UREA NITROGEN, BLOOD 8 mg/dL (7-18)
[2017-05-05 06:11] LABS: MAGNESIUM 1.7 mg/dL (1.8-2.4); PHOSPHORUS 2.9 mg/dL (2.5-4.9)
[2017-05-05] MEDS: BLOOD GLUCOSE MONITORING 1 DEV DEV FS SCH ×4 (06:41→20:59)
[2017-05-05] MEDS: INSULIN LISPRO SLIDING SCALE 100 UNITS/ML VIAL SUBQ PRN (06:46)
--- NOTE | 2017-05-05 06:51 | NUR ---
TOLD PATIENT THAT WHEN SHE IS ABLE TO URINATE INTO THE URINE SAMPLE CUP FOR TESTING, VERBALIZED UNDERSTANDING.
--- NOTE | 2017-05-05 07:19 | NUR ---
ENDORSED TO AM NURSE FOR CONTINUITY CARE, IN STABLE CONDITION.
--- NOTE | 2017-05-05 07:21 | NUR ---
RECEIVED REPORT FROM NIGHT NURSE, PT ALERT AND ORIENTED X4, RESTING IN BED, STATING WOULD LIKE LIKE SOMETHING FOR NAUSEA. WILL RETURN WITH NAUSEA MED, SAFETY MEASURES ENSURED.
[2017-05-05 08:00] VITALS: BP 137/64
[2017-05-05] MEDS: metFORMIN 500 MG TAB PO SCH (08:22)
[2017-05-05] MEDS: AMYLASE/LIPASE/PROTEASE 1 CAPDR PO SCH ×3 (08:22→16:56)
[2017-05-05] MEDS: SUCRALFATE 1 GM TAB PO SCH ×4 (08:23→21:01)
[2017-05-05] MEDS: DOCUSATE SODIUM 100 MG GELCAP PO SCH ×2 (08:23→21:01)
[2017-05-05] MEDS: HYDROCHLOROTHIAZIDE 25 MG TAB PO SCH (08:23)
[2017-05-05] MEDS: LISINOPRIL 20 MG TAB PO SCH (08:23)
[2017-05-05] MEDS: PANTOPRAZOLE 40 MG INJ VIAL IVP SCH ×2 (08:24→21:01)
[2017-05-05] MEDS: LACTOBACILLUS RHAMNOSUS GG 1 EACH CAP PO SCH (08:24)
[2017-05-05] MEDS: LEVOFLOXACIN 750 MG/D5W PREMIX 150 ML IV SCH (08:25)
[2017-05-05] MEDS ORDERED: DICYCLOMINE HCL LIQUID 10 MG/5 ML UDC PO PRN (08:45)
[2017-05-05] MEDS ORDERED: LIDOCAINE VISCOUS 2% 20 ML UDC PO PRN (08:45)
--- NOTE | 2017-05-05 08:47 | NUR ---
MORNING MEDS GIVEN WITH TEACHING, 2 MEDS CRUSHED AT PATIENT'S REQUEST, PT UP IN BED, SAFETY MEASURES ENSURED, CALL LIGHT WITHIN REACH WILL MONITOR.
[2017-05-05] MEDS ORDERED: HYDROCHLOROTHIAZIDE 25 MG TAB PO SCH (09:00)
--- NOTE | 2017-05-05 11:38 | NUR ---
PT STATED PAIN THE SAME MD MADE AWARE, WILL FOLLOW UP.
[2017-05-05] MEDS ORDERED: DEXTROSE 50% 50 ML SYR IVP PRN (12:00)
[2017-05-05] MEDS ORDERED: MAG SULF 2000 MG/WATER PREMIX 50 ML IV SCH (12:00)
[2017-05-05] MEDS ORDERED: MAG SULF 2000 MG/WATER PREMIX 100 ML IV SCH (12:00)
[2017-05-05] MEDS ORDERED: SODIUM PHOS / POTASSIUM PHOS 1 PKT PDR PO SCH (12:00)
--- NOTE | 2017-05-05 12:33 | NUR ---
PT COMPLAINTS OF NAUSEA, NAUSEA MED GIVEN WITH TEACHING, PT VERBALIZED UNDERSTANDING, SAFETY MEASURES ENSURED, WILL MONITOR.
--- NOTE | 2017-05-05 14:14 | NUR ---
COMPLAINTS OF ABDOMEN PAIN, PAIN LEVEL 10/10, PT IN BED, 2 RAILS UP, SAFETY MEASURES ENSURED, WILL MONITOR.
--- NOTE | 2017-05-05 14:26 | NUR ---
05/05/17 RD INITIAL ASSESSMENT COMPLETED PLEASE REFER TO NUTRITION ASSESSMENT UNDER CARE ACTIVITY FOR ESTIMATED NUTRITIONAL NEEDS. 1. CONTINUE 60GM CONSISTENT CARBOHYDRATE DIET 2. CONSIDER DIET HEALTH SHAKE TID 3. RD TO FOLLOW UP WITHIN 2-3 DAYS; HIGH RISK MARYANNE RODAS, DONG
[2017-05-05 14:43] LABS: AMPHETAMINE, URINE NEG. ng/ml (NEG <=1000); BARBITURATE, URINE NEG. ng/ml (NEG <=200); BENZODIAZEPINE, URINE POS. ng/mL (NEG <=200); CANNABINOID, URINE NEG. ng/mL (NEG <=50); COCAINE, URINE NEG. ng/mL (NEG <=300); OPIATE, URINE POS. ng/mL (NEG <=2000); PHENCYCLIDINE SCREEN,URINE NEG. ng/mL (NEG <=25)
[2017-05-05 16:00] VITALS: BP 140/65
[2017-05-05] MEDS ORDERED: BLOOD GLUCOSE MONITORING 1 DEV DEV FS SCH (16:30)
[2017-05-05] MEDS: metFORMIN 850 MG TAB PO SCH (16:55)
--- NOTE | 2017-05-05 18:16 | NUR ---
PT GIVEN PAIN MED FOR ABDOMINAL PAIN, TEACHING GIVEN AND PT VERBALIZED UNDERSTANDING. SAFETY MEASURES ENSURED, CALL LIGHT WITHIN REACH, WILL MONITOR.
--- NOTE | 2017-05-05 19:35 | NUR ---
REPORT GIVEN TO NIGHT NURSE, PT A&OX4, RESTING IN BED NO S/S OF DISTRESS, CALL LIGHT WITHIN REACH, SAFETY ENSURED.
--- NOTE | 2017-05-05 19:36 | NUR ---
RECEIVED REPORT FROM AM NURSE. PT IS AOX4, ABLE TO VERBALIZE FEELINGS. NO S/S OF DISTRESS. WITH AN IV TO THE LEFT HAND, 24 G, PATENT, INTACT AND INFUSING WELL. REORIENTED PT TO THE UNIT, VERBALIZED UNDERSTANDING. WILL CONTINUE TO MONITOR. ALL NEEDS ATTENDED. CALL LIGHT WITHIN REACH. SAFETY CHECKS IN PLACE.
--- NOTE | 2017-05-05 19:40 | NUR ---
TALKED TO THE SISTER AND ASKED ABOUT AN UPDATE ON THE PATIENT, SAID THAT SHE WAS CONCERNED ABOUT THE PAIN THAT THE PATIENT IS FEELING. TOLD HER I WAS GOING TO ASK THE DOCTOR ABOUT IT.
--- NOTE | 2017-05-05 20:15 | NUR ---
TALKED TO DR. HALL IN REGARDS TO THE PATIENT'S SISTER'S CONCERN. DR. HALL SAID THAT SHE RECEIVED A CALL FROM DR. VAZ SAYING THAT THERE IS NOTHING WRONG AND REQUESTS FOR A PSYCH EVALUATION FOR THE PATIENT. NOTED.
[2017-05-05] MEDS: oxyCODONE/APAP 5/325 MG 1 TAB TAB PO PRN (21:02)
--- NOTE | 2017-05-05 21:15 | NUR ---
DUE MEDS GIVEN, GAVE PRN PERCOCET FOR ABDOMINAL PAIN. GAVE PRN ZOLFRAN FOR NAUSEA AND VOMITING. WILL CONTINUE TO MONITOR. ALL NEEDS ATTENDED. CALL LIGHT WITHIN REACH. SAFETY CHECKS IN PLACE.
[2017-05-05] MEDS: NACL 0.9% 1,000 ML IV SCH (21:22)
[2017-05-06] VITALS: BP 147/68
--- NOTE | 2017-05-06 | NUR ---
VITAL SIGNS TAKEN, STABLE. NO S/S OF DISTRESS. WILL CONTINUE TO MONITOR. ALL NEEDS ATTENDED. CALL LIGHT WITHIN REACH. SAFETY CHECKS IN PLACE.
--- NOTE | 2017-05-06 01:50 | NUR ---
TALKED TO DR. HALL IN REGARDS TO DR. VAZ'S RECOMMENDATION IN DISCONTINUING LEVAQUIN, SAID THAT IT WAS ORDERED FOR UTI AND WILL ENDORSE TO THE RESIDENT'S IN THE MORNING IN REGARDS TO DR. VAZ'S RECOMMENDATION.
--- NOTE | 2017-05-06 02:00 | NUR ---
CALLED RADIOLOGY IN REGARDS TO THE ULTRASOUND OF THE BILATERAL ARTERIAL LOWER EXTREMITIES OF THE PATIENT THAT WAS SUPPOSED TO BE DONE YESTERDAY. SAID THAT THEIR SERVERS WERE CORRUPTED AND WOULD LEAVE A NOTE FOR THE COORDINATOR IN REGARDS TO THE ORDER.
--- NOTE | 2017-05-06 02:12 | NUR ---
MADE ROUNDS, PT SLEEPING. NO S/S OF DISTRESS. WILL CONTINUE TO MONITOR. CALL LIGHT WITHIN REACH.
--- NOTE | 2017-05-06 04:17 | NUR ---
MADE ROUNDS, PATIENT ASLEEP. NO S/S OF DISTRESS. WILL CONTINUE TO MONITOR. CALL LIGHT WITHIN REACH, SAFETY CHECKS IN PLACE.
[2017-05-06] MEDS: MORPHINE SULFATE 2 MG/ML SYR IVP PRN (05:41)
--- NOTE | 2017-05-06 05:41 | NUR ---
COMPLAINED OF ABDOMINAL PAIN, GAVE PRN MORPHINE. WILL CONTINUE TO MONITOR.
[2017-05-06] MEDS: INSULIN LISPRO SLIDING SCALE 100 UNITS/ML VIAL SUBQ PRN ×3 (06:08→21:10)
[2017-05-06] MEDS: ONDANSETRON 4 MG/2 ML VIAL IVP PRN (06:09)
--- NOTE | 2017-05-06 06:09 | NUR ---
COMPLAINED OF NAUSEA, GAVE PRN ZOLFRAN. WILL CONTINUE TO MONITOR.
[2017-05-06] MEDS ORDERED: DICYCLOMINE HCL LIQUID 10 MG/5 ML UDC PO PRN (06:15)
[2017-05-06] MEDS ORDERED: ALUMINUM HYD/MAG/SIMETHICONE 30 ML UDC PO PRN (06:15)
[2017-05-06] MEDS ORDERED: LIDOCAINE VISCOUS 2% 20 ML UDC PO PRN (06:15)
[2017-05-06] MEDS: BLOOD GLUCOSE MONITORING 1 DEV DEV FS SCH ×4 (06:32→21:08)
[2017-05-06 06:34] LABS: HEMOGLOBIN 11.1 g/dL (12.0-16.0); MEAN CORPUSCULAR HEMOGLOBIN 32 pg (27-31); MEAN CORPUSCULAR HGB CONC 33 g/dL (33-37); MEAN CORPUSCULAR VOLUME 96 fL (80-94); PLATELET COUNT (AUTO) 306 K/uL (140-450); RED BLOOD CELL COUNT(AUTO) 3.53 MIL/uL (4.20-5.40); RED CELL DISTRIBUTION WIDTH 13.2 % (11.6-13.7); WHITE BLOOD COUNT (AUTO) 7.8 K/uL (4.8-10.8)
--- NOTE | 2017-05-06 06:36 | NUR ---
BLOOD SUGAR NOTED TO BE 166. GAVE 2 UNITS OF INSULIN. WILL CONTINUE TO MONITOR.
[2017-05-06 06:46] LABS: ANION GAP 16.6 (8-16); CALCIUM 8.2 mg/dL (8.5-10.1); CARBON DIOXIDE 21.6 mmol/L (21-32); CHLORIDE 86 mmol/L (98-107); CREATININE 0.8 mg/dL (0.6-1.3); GLUCOSE 155 mg/dL (74-106); POTASSIUM 3.2 mmol/L (3.5-5.1); UREA NITROGEN, BLOOD 6 mg/dL (7-18)
[2017-05-06 06:53] LABS: SODIUM SERUM 121 mmol/L (136-145)
--- NOTE | 2017-05-06 06:59 | NUR ---
TALKED TO DR. ZAMORA IN REGARDS TO PT'S CRITICAL LAB VALUE OF SODIUM 121. SAID THAT THE RESIDENTS ARE GOING TO TALK ABOUT THE PATIENT AND ORDERS ARE TO FOLLOW. NOTED.
[2017-05-06 07:10] LABS: LYMPHOCYTES % (MANUAL) 27 % (20-46); MONOCYTES % (MANUAL) 12 % (5-12); NEUTROPHILS % (MANUAL) 61 (43-65)
[2017-05-06] MEDS ORDERED: FUROSEMIDE 40 MG/4 ML VIAL IVP SCH (07:24)
--- NOTE | 2017-05-06 07:28 | NUR ---
ENDORSED TO AM SHIFT NURSE FOR CONTINUITY OF CARE, IN STABLE CONDITION.
--- NOTE | 2017-05-06 07:29 | NUR ---
REPORT RECEIVED FROM NIGHT NURSE, IV PATENT, PT [id number], COMPLAINTS OF PAIN, WILL FOLLOW UP, SAFETY MEASURES ENSURED, CALL LIGHT WITHIN REACH, WILL MONITOR.
[2017-05-06 08:00] VITALS: BP 131/61
[2017-05-06] MEDS: LACTOBACILLUS RHAMNOSUS GG 1 EACH CAP PO SCH (08:46)
[2017-05-06] MEDS: metFORMIN 850 MG TAB PO SCH ×2 (08:46→17:15)
[2017-05-06] MEDS: DOCUSATE SODIUM 100 MG GELCAP PO SCH ×2 (08:46→21:00)
[2017-05-06] MEDS: SUCRALFATE 1 GM TAB PO SCH ×4 (08:46→21:01)
[2017-05-06] MEDS: LISINOPRIL 20 MG TAB PO SCH (08:47)
[2017-05-06] MEDS: LEVOFLOXACIN 750 MG/D5W PREMIX 150 ML IV SCH (08:47)
[2017-05-06] MEDS: PANTOPRAZOLE 40 MG INJ VIAL IVP SCH ×2 (08:47→20:18)
[2017-05-06] MEDS: AMYLASE/LIPASE/PROTEASE 1 CAPDR PO SCH ×3 (08:48→17:15)
--- NOTE | 2017-05-06 08:48 | NUR ---
MORNING MEDS GIVEN WITH TEACHING, PT VERBALIZED UNDERSTANDING, CALL LIGHT WITHIN REACH, SAFETY MEASURES ENSURED, WILL MONITOR.
[2017-05-06] MEDS: oxyCODONE/APAP 5/325 MG 1 TAB TAB PO PRN (08:52)
[2017-05-06] MEDS ORDERED: POTASSIUM CHLORIDE 40 MEQ, LIDOCAINE 1% 25 MG in NACL 0.9% 250 ML IV SCH ×2 (10:00→16:00)
--- NOTE | 2017-05-06 12:04 | NUR ---
MEDS GIVEN WITH TEACHING, PT REQUEST TO HAVE PAIN MEDS CRUSHED AND PLACED IN APPLE SAUCE, SAFETY MEASURES FOLLOWED AND ENSURED, CALL LIGHT WITHIN REACH, WILL MONITOR.
[2017-05-06 12:18] LABS: ANION GAP 17.1 (8-16); CALCIUM 8.4 mg/dL (8.5-10.1); CARBON DIOXIDE 24.3 mmol/L (21-32); CHLORIDE 83 mmol/L (98-107); CREATININE 0.8 mg/dL (0.6-1.3); GLUCOSE 168 mg/dL (74-106); POTASSIUM 3.4 mmol/L (3.5-5.1); UREA NITROGEN, BLOOD 7 mg/dL (7-18)
[2017-05-06 12:31] LABS: SODIUM SERUM 121 mmol/L (136-145)
[2017-05-06] MEDS ORDERED: MORPHINE SULFATE 2 MG/ML SYR IVP PRN (13:30)
[2017-05-06] MEDS ORDERED: NACL 0.9% 1,000 ML IV SCH (13:30)
[2017-05-06] MEDS ORDERED: DICLOFENAC 25 MG TABEC PO SCH (14:30)
--- NOTE | 2017-05-06 14:33 | NUR ---
PT HAD DIARRHEA, PT CLEANED UP AND CHANGED, SAFETY MEASURES ENSURED, WILL MONITOR.
[2017-05-06] MEDS ORDERED: SODIUM CHLORIDE 1 GM TAB PO SCH ×3 (15:15→21:00)
[2017-05-06 16:00] VITALS: BP 139/79
--- NOTE | 2017-05-06 19:25 | NUR ---
REPORT GIVEN TO NIGHT NURSE, PT VERBALIZED UNDERSTANDING NEW NURSE FOR THE NIGHT, NO S/S OF DISTRESS, CALL LIGHT WITHIN REACH, SAFETY MEASURES ENSURED.
--- NOTE | 2017-05-06 19:26 | NUR ---
RECD. RESTING IN BED, AWAKE, A/OX4. RESPIRATION EVEN AND UNLABORED. IV OF NS AT 120 ML/HR INFUSING, LEFT HAND G 22. SAFETY MEASURES ENFORCED. INSTRUCTED TO CALL NURSE WHEN GETTING OUT OF BED FOR ASSISTANCE. VERBALIZED UNDERSTANDING. ON BILATERAL LEG SEQUENTIALS. DENIES PAIN 0/10.
[2017-05-06 20:00] VITALS: BP 134/69
--- NOTE | 2017-05-06 20:00 | NUR ---
Patient's Plan of Care was discussed and reviewed with INSTRUMENT SETTER: DAISY.
[2017-05-06 20:43] LABS: ANION GAP 19.2 (8-16); CALCIUM 8.3 mg/dL (8.5-10.1); CARBON DIOXIDE 21.8 mmol/L (21-32); CHLORIDE 82 mmol/L (98-107); CREATININE 1.1 mg/dL (0.6-1.3); GLUCOSE 162 mg/dL (74-106); UREA NITROGEN, BLOOD 10 mg/dL (7-18)
[2017-05-06 20:45] LABS: SODIUM SERUM 120 mmol/L (136-145)
--- NOTE | 2017-05-06 20:45 | NUR ---
INFORMED DR. HALL, PATIENT SODIUM IS 120. WILL WRITE ORDERS FOR PATIENT.
--- NOTE | 2017-05-06 21:20 | NUR ---
INFORMED PATIENT NEEDS TO COLLECT URINE FOR OSMOLARITY AND FOR 24 HOUR URINE COLLECTION FOR UA SODIUM. HAT PLACED IN THE TOILET. PATIENT WANTS BSC, WILL ASK HOUSEKEEPING TO BRING ONE.
[2017-05-06] MEDS ORDERED: FUROSEMIDE 20 MG/2 ML VIAL IVP SCH (21:35)
--- NOTE | 2017-05-06 22:12 | NUR ---
DR. HALL ORDERED NPO EXCEPT MEDS. AND STRICT I & O. PATIENT MADE AWARE.
[2017-05-06] MEDS ORDERED: POTASSIUM CHLORIDE 10 MEQ TABER PO ONE (23:20)
[2017-05-07] MEDS ORDERED: FUROSEMIDE 20 MG/2 ML VIAL IVP SCH (00:15)
--- NOTE | 2017-05-07 00:37 | NUR ---
LASIX 20 MG. IVP GIVEN BY SHARI ORDERED.
--- NOTE | 2017-05-07 01:00 | NUR ---
PATIENT WENT DIRECTLY TO TOILET TO VOID INSTEAD OF THE HAT IN THE BSC. UNABLE TO COLLECT UA FOR LAB TEST, WILL ENDORSE TO AM NURSE.
[2017-05-07 02:40] LABS: ANION GAP 16.3 (8-16); CALCIUM 8.4 mg/dL (8.5-10.1); CARBON DIOXIDE 23.9 mmol/L (21-32); CHLORIDE 82 mmol/L (98-107); CREATININE 0.9 mg/dL (0.6-1.3); GLUCOSE 163 mg/dL (74-106); POTASSIUM 3.2 mmol/L (3.5-5.1); UREA NITROGEN, BLOOD 8 mg/dL (7-18)
[2017-05-07 03:24] LABS: SODIUM SERUM 119 mmol/L (136-145)
--- NOTE | 2017-05-07 04:00 | NUR ---
RESULT OF BLE ARTERIAL US IS WRONG IT IS RESULT OF BLE VENOUS US.TALKED WITH SHILOH IN US DEPARTMENT.SHE SAID SHE WILL TELL TO AM SHIFT TO FIX IT.
[2017-05-07] MEDS ORDERED: SODIUM CHLORIDE 1 GM TAB PO ONE (04:45)
--- NOTE | 2017-05-07 06:00 | NUR ---
BED ALARMED, WENT TO PATIENT ROOM, PT. IS INSIDE BR VOIDING. INSTRUCTED PATIENT NOT TO THROW HER URINE, STATED YES. WHEN DOOR OPENED, HAT IN ON TOP AND NOT IN THE TOILET, NO URINE WAS COLLECTED. PATIENT IS NOT COOPERATIVE. WILL INFORMED MD BUT THEY'RE IN THE MEETING. WILL ENDORSE TO AM NURSE.
[2017-05-07 06:18] LABS: HEMATOCRIT 34.1 % (36-48); HEMOGLOBIN 11.9 g/dL (12.0-16.0); MEAN CORPUSCULAR HEMOGLOBIN 33 pg (27-31); MEAN CORPUSCULAR HGB CONC 35 g/dL (33-37); MEAN CORPUSCULAR VOLUME 95 fL (80-94); PLATELET COUNT (AUTO) 270 K/uL (140-450); RED BLOOD CELL COUNT(AUTO) 3.61 MIL/uL (4.20-5.40); RED CELL DISTRIBUTION WIDTH 13.2 % (11.6-13.7); WHITE BLOOD COUNT (AUTO) 12.6 K/uL (4.8-10.8)
[2017-05-07 06:34] LABS: ANION GAP 16.8 (8-16); CALCIUM 8.7 mg/dL (8.5-10.1); CARBON DIOXIDE 23.3 mmol/L (21-32); CHLORIDE 83 mmol/L (98-107); CREATININE 0.9 mg/dL (0.6-1.3); GLUCOSE 145 mg/dL (74-106); POTASSIUM 3.1 mmol/L (3.5-5.1); UREA NITROGEN, BLOOD 9 mg/dL (7-18)
[2017-05-07 06:38] LABS: MAGNESIUM 1.4 mg/dL (1.8-2.4); PHOSPHORUS 1.6 mg/dL (2.5-4.9)
[2017-05-07 06:42] LABS: SODIUM SERUM 120 mmol/L (136-145)
[2017-05-07] MEDS: BLOOD GLUCOSE MONITORING 1 DEV DEV FS SCH (06:55)
[2017-05-07] MEDS: INSULIN LISPRO SLIDING SCALE 100 UNITS/ML VIAL SUBQ PRN (06:56)
[2017-05-07 07:10] LABS: BAND % (MANUAL) 2 % (0-8); LYMPHOCYTES % (MANUAL) 21 % (20-46); MONOCYTES % (MANUAL) 8 % (5-12); NEUTROPHILS % (MANUAL) 69 (43-65)
[2017-05-07 07:11] LABS: PLATELET ESTIMATE ADEQUATE
--- NOTE | 2017-05-07 07:30 | NUR ---
REPORT RECEIVED FROM NIGHT NURSE, NO COMPLAINTS OF PAIN, IV PATENT, TEACHING GIVEN CONCERNING 24 HOUR URINE COLLECTION NEEDED, PT VERBALIZED UNDERSTANDING, CALL LIGHT WITHIN REACH, SAFETY MEASURES ENSURED, WILL MONITOR.
[2017-05-07 07:49] VITALS: BP 124/56
[2017-05-07] MEDS: metFORMIN 850 MG TAB PO SCH ×2 (08:00→08:41)
[2017-05-07] MEDS: AMYLASE/LIPASE/PROTEASE 1 CAPDR PO SCH ×2 (08:00→08:42)
[2017-05-07] MEDS ORDERED: SODIUM CHLORIDE 1 GM TAB PO SCH ×2 (08:00)
[2017-05-07] MEDS: FUROSEMIDE 40 MG/4 ML VIAL IVP SCH ×2 (08:00→08:40)
[2017-05-07] MEDS ORDERED: NACL 0.9% 500 ML IV SCH (08:15)
[2017-05-07] MEDS: MAG SULF 2000 MG/WATER PREMIX 50 ML IV SCH ×2 (08:30→08:52)
[2017-05-07] MEDS: LISINOPRIL 20 MG TAB PO SCH ×2 (08:41→09:00)
[2017-05-07] MEDS: SUCRALFATE 1 GM TAB PO SCH ×2 (08:41→09:00)
[2017-05-07] MEDS: POTASSIUM CHLORIDE 10 MEQ TABER PO SCH ×2 (08:41→09:00)
[2017-05-07] MEDS: PANTOPRAZOLE 40 MG INJ VIAL IVP SCH ×2 (08:41→09:00)
[2017-05-07] MEDS: DOCUSATE SODIUM 100 MG GELCAP PO SCH ×2 (08:41→09:00)
[2017-05-07] MEDS: LACTOBACILLUS RHAMNOSUS GG 1 EACH CAP PO SCH ×2 (08:42→09:00)
--- NOTE | 2017-05-07 10:45 | NUR ---
PT SIGNED OUT WITH AN AMA TO LEAVE THE HOSPITAL, PT STATED SHE HAD RENT TO PAY AT HOME, DR MCELROY MADE AWARE AND TALKED TO THE PATIENT ABOUT THE EFFECTS OF LEAVING AGAINST MEDICAL ADVICE, PT VERBALIZED UNDERSTANDING, STILL REFUSED TO REMAIN IN THE HOSPITAL, IV REMOVED, PATIENT DRESSED HERSELF, CALLED A TAXI, A WHEELCHAIR WAS USED TO TAKE PATIENT TO THE TAXI WHEN DEPARTING THE HOSPITAL, NO S/S OF DISTRESS, PT ALERT AND ORIENTED X4 AND STABLE.
[2017-05-07] MEDS ORDERED: SODIUM PHOSPHATE 15 MMOLE in NACL 0.9% 250 ML IV SCH (11:00)
[2017-05-07] MEDS ORDERED: POTASSIUM CHLORIDE 10 MEQ TABER PO SCH (13:00)
== END 2017-05-07 10:45 | disposition left against medical advice (07) | DRG 391 ==
LOC: MED 03:05 → MTU 05:45
PROVIDERS: ADMIT Family Medicine; ATTEND Family Medicine
DX: K21.0 Gastro-esophageal reflux disease with esophagitis (principal); N17.0 Acute kidney failure with tubular necrosis; E87.1 Hypo-osmolality and hyponatremia; E11.65 Type 2 diabetes mellitus with hyperglycemia; E11.51 Type 2 diabetes mellitus with diabetic peripheral angiopathy without gangrene; D68.59 Other primary thrombophilia; N39.0 Urinary tract infection, site not specified; K86.1 Other chronic pancreatitis; F11.20 Opioid dependence, uncomplicated; E83.42 Hypomagnesemia; E83.52 Hypercalcemia; I10 Essential (primary) hypertension; G47.00 Insomnia, unspecified; K58.9 Irritable bowel syndrome, unspecified; G89.4 Chronic pain syndrome; D64.9 Anemia, unspecified; R31.9 Hematuria, unspecified; K76.89 Other specified diseases of liver; E83.39 Other disorders of phosphorus metabolism; Z90.49 Acquired absence of other specified parts of digestive tract; Z88.6 Allergy status to analgesic agent; Z88.1 Allergy status to other antibiotic agents; Z83.3 Family history of diabetes mellitus; Z82.49 Family history of ischemic heart disease and other diseases of the circulatory system; Z80.0 Family history of malignant neoplasm of digestive organs; Z82.3 Family history of stroke
CPT/HCPCS: 36415; 71010; 80048; 80053; 80305; 81001; 82140; 82150; 82948; 83036; 83605; 83690; 83735; 83880; 83930; 84100; 84439; 84443; 84484; 85025; 85610; 85730; 87040; 87081; 87086; 87186; 93005; 93925; 93970; 96361; 96365; 96366; 96375; 97110; 99285; C1758; C9113; J0696; J1815; J1940; J1956; J2001; J2270; J2405; J3010; J3475; J3480; J7030; J7060; Q0092

== ENCOUNTER 2017-08-09 20:36 | Inpatient (IN) | payer OTHER, MEDICAID ==
[~2017-08-09] VITALS: Ht 165.1 cm; Wt 77.1 kg
[2017-08-09] MEDS: NACL 0.9% 1,000 ML IV SCH (01:00)
[~2017-08-09 20:36] MED LIST changes: -ACET-3783 PO; +ACET-5636 PO; +ACET-787 PO; +GLU500 PO; -HYDR-4452 PO; -METF500T64 PO
[2017-08-09 20:42] VITALS: BP 109/59
--- NOTE | 2017-08-09 21:25 | NUR ---
PT TAKEN TO BED 2
--- NOTE | 2017-08-09 21:30 | NUR ---
72Y/F PT. PRESENTS TO ED WITH C/O ABDOMINAL PAIN X 1 DAY. PT. DENIES N/V/D NOR FEVER. HX. DM. AAO X4, AMBULATORY WITH STEDAY GAIT. RESPIRATIONS ROOM AIR, EVEN AND UNLABORED. ABDOMEN SOFT, NON TENDER, HYPOACTIVE BS X4, C/O PAIN 10/10. VSS, ER MADE AWARE OF PT. STATUS.
--- NOTE | 2017-08-09 21:50 | NUR ---
Dr. Rooney evaluating patient at bedside.
[2017-08-09] MEDS ORDERED: NACL 0.9% 1,000 ML IV ONE (21:55)
[2017-08-09] MEDS ORDERED: ONDANSETRON 4 MG/2 ML VIAL IVP ONE (21:55)
[2017-08-09] MEDS ORDERED: MORPHINE SULFATE 4 MG/ML SYR IVP ONE ×2 (21:55→22:45)
[2017-08-09] MEDS ORDERED: LEVOFLOXACIN 500 MG/D5W PREMIX 100 ML IV ONE (21:55)
[2017-08-09 22:40] LABS: ALBUMIN 3.8 g/dL (3.4-5.0); AMYLASE 66 U/L (25-115); ASPARTATE AMINOTRANSFERASE 14 U/L (15-37); CARBON DIOXIDE 23.1 mmol/L (21-32); CREATININE 1.7 mg/dL (0.6-1.3); GLUCOSE 135 mg/dL (74-106); LIPASE 336 U/L (73-393); TOTAL BILIRUBIN 0.5 mg/dL (0.0-1.0); UREA NITROGEN, BLOOD 27 mg/dL (7-18)
[2017-08-09 22:45] LABS: HEMATOCRIT 34.1 % (36-48); HEMOGLOBIN 11.6 g/dL (12.0-16.0); MEAN CORPUSCULAR HEMOGLOBIN 33 pg (27-31); MEAN CORPUSCULAR HGB CONC 34 g/dL (33-37); MEAN CORPUSCULAR VOLUME 95 fL (80-94); PLATELET COUNT (AUTO) 289 K/uL (140-450); RED BLOOD CELL COUNT(AUTO) 3.57 MIL/uL (4.20-5.40); RED CELL DISTRIBUTION WIDTH 11.7 % (11.6-13.7); WHITE BLOOD COUNT (AUTO) 6.3 K/uL (4.8-10.8)
[2017-08-09 22:47] LABS: ANION GAP 16.1 (8-16); CHLORIDE 89 mmol/L (98-107); POTASSIUM 4.2 mmol/L (3.5-5.1)
[2017-08-09 22:54] LABS: EOSINOPHILS % (MANUAL) 1 % (0-4); LYMPHOCYTES % (MANUAL) 42 % (20-46); MONOCYTES % (MANUAL) 7 % (5-12)
[2017-08-09 22:57] LABS: SODIUM SERUM 124 mmol/L (136-145)
--- NOTE | 2017-08-09 22:58 | NUR ---
PT. UNABLE TO URINATE, DR. DOYLE MADE AWARE
[2017-08-09] MEDS ORDERED: ACETAMINOPHEN 325 MG TAB PO PRN (23:30)
[2017-08-09] MEDS ORDERED: ONDANSETRON 4 MG/2 ML VIAL IM/IVP PRN (23:30)
[2017-08-09] MEDS ORDERED: DOCUSATE SODIUM 100 MG GELCAP PO PRN (23:30)
[2017-08-09] MEDS ORDERED: HYDROcodone/APAP 7.5/325 MG 1 TAB PO PRN (23:30)
--- NOTE | 2017-08-09 23:54 | NUR ---
Patient will be admitted to care of DR. BUCK. Admited to TELEMETRY. Will go to room 113. Belongings list completed. Report to TIARRA MIN.
--- NOTE | 2017-08-10 00:15 | NUR ---
PT ARRIVED TO UNIT VIA GURNEY FROM ER. PT WAS ABLE TO AMBULATE WITH STEADY GAIT. PT IS A/OX4, ON ROOM AIR. PT HAS A LEFT HAND 22G IV, SL. SKIN INTACT. SAFETY PRECAUTIONS IN PLACE. UPDATED BOARD. DISCUSSED PLAN OF CARE WITH PT, PT VERBALIZED UNDERSTANDING. VITAL SIGNS WITHIN NORMAL LIMITS. ORIENTED PT TO ROOM, RESTROOM, PHONE, CALL LIGHT AND BOARD. PT IN STABLE CONDITION, NO SIGNS OF DISTRESS NOTED. BED IN LOW POSITION, CALL LIGHT WITHIN REACH. WILL CONTINUE TO MONITOR.
[2017-08-10 00:55] VITALS: BP 147/69
[2017-08-10 01:54] LABS: CHOL/HDL RATIO 3.9 (1-4.5); FREE T4 (FREE THYROXINE) 0.98 ng/dL (0.76-1.46); MAGNESIUM 2.1 mg/dL (1.8-2.4); PHOSPHORUS 3.3 mg/dL (2.5-4.9); THYROID STIMULATING HORMONE 0.34 uIU/mL (0.34-3.74)
[2017-08-10] MEDS: MORPHINE SULFATE 2 MG/ML SYR IVP PRN ×5 (03:15→20:14)
[2017-08-10 04:00] VITALS: BP 108/60
[2017-08-10] MEDS ORDERED: HYDROmorphone 1 MG/ML AMP IVP SCH (05:25)
--- NOTE | 2017-08-10 06:45 | NUR ---
PATIENT HAS BEEN SCREENED AND CATEGORIZED MODERATE NUTRITION RISK. PATIENT WILL BE SEEN WITHIN 3-5 DAYS OF ADMISSION. 08/11/17-08/13/17 ULISES AMES MS, RDN Addendum: 08/11/17 at [address] DATE CORRECTION: 08/12/17 - 08/14/[address]
--- NOTE | 2017-08-10 07:33 | NUR ---
ENDORSED PT TO DAY SHIFT RN FOR CONTINUITY OF CARE. PT IN STABLE CONDITION.
--- NOTE | 2017-08-10 07:35 | NUR ---
RECEIVED REPORT FROM PM NURSE. PT GCS 15. BILATERAL PERRLA OBSERVED. DENIES PAIN. DENIES SOB. LUNGS CLEAR ON AUSCULTATION. EQUAL, BILATERAL BREATH OBSERVED. VITALS WITHIN NORMAL. BOWEL SOUND PRESENT X 4 QUADRANT. ABDOMEN SOFT, NONTENDER. SKIN INTACT, WARM, DRY. ABLE TO AMBULATE WITH STEADY GAIT. ABLE TO VOID FREELY. URINE COLLECTED. NO S/SX OF ACUTE DISTRESS NOTED. FALL AND SAFETY PRECAUTION MAINTAINED. BED AT LOWEST SETTING. CALL LIGHT WITHIN REACH. WILL CONTINUE TO MONITOR FOR CHANGES.
[2017-08-10 08:00] VITALS: BP 139/75
[2017-08-10] MEDS ORDERED: MECLIZINE 25 MG TAB PO PRN (09:15)
[2017-08-10] MEDS ORDERED: oxyCODONE/APAP 5/325 MG 1 TAB TAB PO PRN (09:30)
[2017-08-10] MEDS ORDERED: LORazepam 1 MG TAB PO PRN (09:30)
[2017-08-10] MEDS ORDERED: FERROUS SULFATE 325 MG TABEC PO SCH (09:45)
[2017-08-10] MEDS ORDERED: AMYLASE/LIPASE/PROTEASE 1 CAPDR PO SCH (09:45)
[2017-08-10] MEDS ORDERED: PANTOPRAZOLE 40 MG TABEC PO SCH (09:45)
[2017-08-10] MEDS ORDERED: ASCORBIC ACID 500 MG TAB PO SCH (09:45)
[2017-08-10] MEDS ORDERED: HYDROCHLOROTHIAZIDE 25 MG TAB PO SCH (09:50)
[2017-08-10] MEDS ORDERED: LISINOPRIL 20 MG TAB PO SCH (09:50)
--- NOTE | 2017-08-10 10:12 | NUR ---
IV REMOVED BY PT. CANNULA INTACT. NEW IV ON FOREARM PLACED. INTACT AND PATENT.
--- NOTE | 2017-08-10 10:28 | NUR ---
PT C/O PAIN. PAIN MEDICATION ADMINISTERED. TOLERATED WELL.
[2017-08-10] MEDS: AMYLASE/LIPASE/PROTEASE 1 CAPDR PO SCH ×3 (10:46→16:47)
[2017-08-10] MEDS: ASCORBIC ACID 500 MG TAB PO SCH (10:46)
[2017-08-10] MEDS: FERROUS SULFATE 325 MG TABEC PO SCH ×2 (10:46→16:47)
[2017-08-10] MEDS: LISINOPRIL 20 MG TAB PO SCH (10:47)
[2017-08-10] MEDS: HYDROCHLOROTHIAZIDE 25 MG TAB PO SCH (10:47)
[2017-08-10] MEDS: PANTOPRAZOLE 40 MG TABEC PO SCH (10:47)
[2017-08-10 11:33] LABS: HEMATOCRIT 37.2 % (36-48); HEMOGLOBIN 12.5 g/dL (12.0-16.0); MEAN CORPUSCULAR HEMOGLOBIN 32 pg (27-31); MEAN CORPUSCULAR HGB CONC 34 g/dL (33-37); MEAN CORPUSCULAR VOLUME 95 fL (80-94); PLATELET COUNT (AUTO) 303 K/uL (140-450); RED BLOOD CELL COUNT(AUTO) 3.92 MIL/uL (4.20-5.40); RED CELL DISTRIBUTION WIDTH 11.7 % (11.6-13.7); WHITE BLOOD COUNT (AUTO) 6.9 K/uL (4.8-10.8)
[2017-08-10 11:51] LABS: ANION GAP 13.9 (8-16); CARBON DIOXIDE 24.2 mmol/L (21-32); CHLORIDE 98 mmol/L (98-107); CREATININE 1.4 mg/dL (0.6-1.3); GLUCOSE 116 mg/dL (74-106); POTASSIUM 4.1 mmol/L (3.5-5.1); SODIUM SERUM 132 mmol/L (136-145); UREA NITROGEN, BLOOD 21 mg/dL (7-18)
--- NOTE | 2017-08-10 11:56 | NUR ---
MEDICATION ADMINISTERED ORDERED. TOLERATED WELL.
[2017-08-10 11:57] LABS: MAGNESIUM 2.1 mg/dL (1.8-2.4); PHOSPHORUS 3.2 mg/dL (2.5-4.9)
[2017-08-10 12:00] VITALS: BP 157/61
[2017-08-10 12:08] LABS: LYMPHOCYTES % (MANUAL) 40 % (20-46); MONOCYTES % (MANUAL) 11 % (5-12)
[2017-08-10 12:09] LABS: EOSINOPHILS % (MANUAL) 1 % (0-4)
[2017-08-10] MEDS: NACL 0.9% 1,000 ML IV SCH (12:46)
--- NOTE | 2017-08-10 12:55 | NUR ---
AUTHORIZATION FOR MEDICAL RECORD RELEASE SIGNED AND FAXED TO [facility] [place].
--- NOTE | 2017-08-10 13:28 | NUR ---
REQUEST FOR DISCLOSURE OF MEDICAL RECORDS FAXED TO [facility]. FAXED CONFIRMED.
[2017-08-10 13:34] LABS: APPEARANCE,URINE CLEAR (CLEAR); BILIRUBIN,URINE NEGATIVE (NEGATIVE); BLOOD, URINE NEGATIVE (NEGATIVE); COLOR,URINE YELLOW (YELLOW); LEUKOCYTE ESTERASE ,URINE 1+ (NEGATIVE); NITRITE, URINE NEGATIVE (NEGATIVE); UGLUCOSE NEGATIVE (NEGATIVE)
--- NOTE | 2017-08-10 13:36 | NUR ---
PT C/O ABDOMINAL PAIN. PAIN MEDICATION GIVEN ORDERED.
[2017-08-10 13:55] LABS: RBC,URINE 0-5 (RARE) /HPF (0-5)
[2017-08-10] MEDS ORDERED: DEXTROSE 50% 50 ML SYR IVP PRN (15:50)
[2017-08-10 16:00] VITALS: BP 133/63
[2017-08-10] MEDS: LACTOBACILLUS RHAMNOSUS GG 1 EACH CAP PO SCH (16:15)
--- NOTE | 2017-08-10 16:30 | NUR ---
PT C/O ABDOMINAL PAIN. PAIN MEDICATION GIVEN ORDERED.
[2017-08-10] MEDS: DEXT 5% / NACL 0.45% 1,000 ML IV SCH (16:47)
[2017-08-10] MEDS: BLOOD GLUCOSE MONITORING 1 DEV DEV FS SCH ×2 (16:50→20:18)
--- NOTE | 2017-08-10 16:56 | NUR ---
PT TO CT.
--- NOTE | 2017-08-10 19:11 | NUR ---
REPORT GIVEN TO TIARRA BEYER. Addendum: 08/10/17 at 1912 by Santos Adames RN REPORT GIVEN TO TIARRA MCDONALD NOT KAYLEEN.
--- NOTE | 2017-08-10 19:12 | NUR ---
RECEIVED REPORT FROM DAY SHIFT RN. PT IS A/OX4, ON ROOM AIR. PT HAS A LEFT HAND 22G IV, SL. SKIN INTACT. PT AMBULATES WITH STEADY GAIT. SAFETY PRECAUTIONS IN PLACE. UPDATED BOARD. DISCUSSED PLAN OF CARE WITH PT, PT VERBALIZED UNDERSTANDING. VITAL SIGNS WITHIN NORMAL LIMITS. VITAL SIGNS ARE WITHIN NORMAL LIMITS. PT IN STABLE CONDITION, NO SIGNS OF DISTRESS NOTED. BED IN LOW POSITION, CALL LIGHT WITHIN REACH. WILL CONTINUE TO MONITOR.
[2017-08-10 20:00] VITALS: BP 122/59
[2017-08-10] MEDS: ATORVASTATIN 20 MG TAB PO SCH (20:11)
[2017-08-10] MEDS: TEMAZEPAM 15 MG CAP PO SCH (21:06)
[2017-08-11] VITALS: BP 132/61
[2017-08-11] MEDS: DEXT 5% / NACL 0.45% 1,000 ML IV SCH ×4 (00:10→16:14)
[2017-08-11] MEDS: MORPHINE SULFATE 2 MG/ML SYR IVP PRN ×6 (00:33→20:56)
[2017-08-11 04:13] VITALS: BP 112/60
--- NOTE | 2017-08-11 06:00 | NUR ---
PT STATES SHE HAS "FINALLY BEEN ABLE TO SLEEP FOR A FEW HOURS." STATES PAIN IS STILL THERE BUT THE MORPHINE MAKES IT MORE TOLERABLE. PT IN STABLE CONDITION, NO SIGNS OF DISTRESS NOTED. CALL LIGHT WITHIN REACH, BED IN LOW POSITION, WILL CONTINUE TO MONITOR.
[2017-08-11] MEDS: BLOOD GLUCOSE MONITORING 1 DEV DEV FS SCH ×4 (06:51→21:04)
[2017-08-11] MEDS: INSULIN LISPRO SLIDING SCALE 100 UNITS/ML VIAL SUBQ PRN ×3 (07:04→21:07)
--- NOTE | 2017-08-11 07:15 | NUR ---
ENDORSED PT TO DAY SHIFT RN FOR CONTINUITY OF CARE. PT IN STABLE CONDITION.
--- NOTE | 2017-08-11 07:16 | NUR ---
RECEIVED REPORT FROM NIGHT RN, PT AWAKE LYING IN BED, A/OX4, IV PATENT AND INTACT, NO S/S OF ACTUE DISTRESS, PT DENIES PAIN AT THE TIME, SAFETY PRECAUTIONS TAKEN, CALL LIGHT WITHIN REACH, WILL CONT TO MONITOR.
[2017-08-11 07:26] LABS: ANION GAP 16.4 (8-16); CARBON DIOXIDE 22.8 mmol/L (21-32); CHLORIDE 103 mmol/L (98-107); CREATININE 1.1 mg/dL (0.6-1.3); GLUCOSE 152 mg/dL (74-106); POTASSIUM 4.2 mmol/L (3.5-5.1); SODIUM SERUM 138 mmol/L (136-145); UREA NITROGEN, BLOOD 12 mg/dL (7-18)
[2017-08-11 07:32] LABS: MAGNESIUM 2.1 mg/dL (1.8-2.4); PHOSPHORUS 3.4 mg/dL (2.5-4.9)
[2017-08-11 08:00] VITALS: BP 141/71
[2017-08-11] MEDS ORDERED: DICYCLOMINE HCL LIQUID 20 MG, ALUMINUM HYD/MAG/SIMETHICONE 30 ML, LIDOCAINE VISCOUS 2% ... PO SCH ×3 (08:00)
[2017-08-11 08:08] LABS: HEMATOCRIT 40.6 % (36-48); HEMOGLOBIN 13.5 g/dL (12.0-16.0); MEAN CORPUSCULAR HEMOGLOBIN 32 pg (27-31); MEAN CORPUSCULAR HGB CONC 33 g/dL (33-37); MEAN CORPUSCULAR VOLUME 96 fL (80-94); PLATELET COUNT (AUTO) 261 K/uL (140-450); RED BLOOD CELL COUNT(AUTO) 4.22 MIL/uL (4.20-5.40); RED CELL DISTRIBUTION WIDTH 11.8 % (11.6-13.7)
[2017-08-11] MEDS: PANTOPRAZOLE 40 MG TABEC PO SCH ×2 (08:42→20:55)
[2017-08-11] MEDS: ASCORBIC ACID 500 MG TAB PO SCH (08:42)
[2017-08-11] MEDS: AMYLASE/LIPASE/PROTEASE 1 CAPDR PO SCH ×3 (08:42→16:32)
[2017-08-11] MEDS: HYDROCHLOROTHIAZIDE 25 MG TAB PO SCH (08:42)
[2017-08-11] MEDS: FERROUS SULFATE 325 MG TABEC PO SCH ×2 (08:42→16:33)
[2017-08-11] MEDS: LACTOBACILLUS RHAMNOSUS GG 1 EACH CAP PO SCH (08:42)
--- NOTE | 2017-08-11 08:54 | NUR ---
DUE MEDICATIONS GIVEN WITH EDUCATION, PT VERBALIZED UNDERSTANDING, PT TOLERATED ALL MEDS WELL, NO S/S OF ACUTE DISTRESS, CALL LIGHT WITHIN REACH, WILL CONT TO MONITOR.
[2017-08-11 09:01] LABS: EOSINOPHILS % (MANUAL) 2 % (0-4); LYMPHOCYTES % (MANUAL) 37 % (20-46); MONOCYTES % (MANUAL) 5 % (5-12)
[2017-08-11] MEDS: LISINOPRIL 20 MG TAB PO SCH (09:14)
--- NOTE | 2017-08-11 11:30 | NUR ---
PT LYING SUPINE IN BED ON RA, NO S/S OF ACUTE DISTRESS, PT HAS PAIN 8/10 IN ABD, WILL MEDICATE ORDERED, CALL LIGHT WITHIN REACH, WILL CONT TO MONITOR.
[2017-08-11 12:00] VITALS: BP 106/65
--- NOTE | 2017-08-11 15:30 | NUR ---
PT LYING IN BED ON RA, PT HAS 9/10 PAIN IN ABD, WILL MEDICATE ORDERED, NO OTHER S/S OF ACUTE DISTRESS, CALL LIGHT WITHIN REACH WILL CONT TO MONITOR.
[2017-08-11 16:00] VITALS: BP 125/48
--- NOTE | 2017-08-11 17:00 | NUR ---
PT SLEEPING IN BED ON RA, NO S/S OF ACUTE DISTRESS, CALL LIGHT WITHIN REACH, WILL CONT TO MONITOR.
--- NOTE | 2017-08-11 19:12 | NUR ---
REPORT GIVEN TO NIGHT RN, NO S/S OF ACUTE DISTRESS, PT IN STABLE CONDITION.
--- NOTE | 2017-08-11 19:15 | NUR ---
RECEIVED PT FROM ELVA MAYEN PT IS AAOX4 AMBULATORY DENIES ANY PAIN AT THIS TIME ON TELMETRY SR, IV ON LEFT FA INFUSING WELL INITIAL ASSESSMENT DONE
[2017-08-11 20:00] VITALS: BP 111/51
[2017-08-11] MEDS: ATORVASTATIN 20 MG TAB PO SCH (20:54)
[2017-08-11] MEDS: TEMAZEPAM 15 MG CAP PO SCH (20:55)
--- NOTE | 2017-08-11 21:40 | NUR ---
AFTER LPAIN MEDIC GIVEN PT RESTING QUIET NOT DISTRESSS NTOED ON TELEMETRY SR
[2017-08-12] VITALS: BP 135/59
--- NOTE | 2017-08-12 | NUR ---
PT AMBULATES TO THE RESTROOM NOT BM VOIDING WELL ON TELEMETRY SR
[2017-08-12] MEDS: DEXT 5% / NACL 0.45% 1,000 ML IV SCH ×3 (02:35→12:06)
[2017-08-12] MEDS: MORPHINE SULFATE 2 MG/ML SYR IVP PRN ×4 (02:36→13:57)
[2017-08-12 04:00] VITALS: BP_SYST 112; BP_SYST 130; BP_DIAS 68; BP_DIAS 76
--- NOTE | 2017-08-12 04:00 | NUR ---
SPONGE BATH GIVEN, LINEN CHANGED ON TELEMETRY SR IV ON LEFT FA INFUSING WELL
[2017-08-12] MEDS: BLOOD GLUCOSE MONITORING 1 DEV DEV FS SCH ×2 (05:55→11:30)
[2017-08-12] MEDS: INSULIN LISPRO SLIDING SCALE 100 UNITS/ML VIAL SUBQ PRN ×2 (05:56→11:51)
--- NOTE | 2017-08-12 06:20 | NUR ---
BLOOD SUGAR 192 COVERAGE WITH HUMALOG 2 UNITS SUBQ ON ABD
[2017-08-12 07:00] LABS: BASOPHILS # (AUTO) 0.3 K/uL (0.00-0.22); BASOPHILS % (AUTO) 4.1 % (0.0-2.0); EOSINOPHILS # (AUTO) 0.2 K/uL (0-0.4); EOSINOPHILS % (AUTO) 2.7 % (0.0-4.0); HEMATOCRIT 38.3 % (36-48); LYMPHOCYTES % (AUTO) 44.5 % (20.5-51.1); MEAN CORPUSCULAR HEMOGLOBIN 32 pg (27-31); MEAN CORPUSCULAR HGB CONC 34 g/dL (33-37); MEAN CORPUSCULAR VOLUME 95 fL (80-94); MONOCYTES # (AUTO) 0.6 K/uL (0.8-1.0); NEUTROPHILS # (AUTO) 2.6 K/uL (1.8-7.7); NEUTROPHILS % (AUTO) 39.7 % (42.2-75.2); PLATELET COUNT (AUTO) 304 K/uL (140-450); RED BLOOD CELL COUNT(AUTO) 4.02 MIL/uL (4.20-5.40); RED CELL DISTRIBUTION WIDTH 11.9 % (11.6-13.7); WHITE BLOOD COUNT (AUTO) 6.7 K/uL (4.8-10.8)
[2017-08-12 07:06] LABS: ANION GAP 16.8 (8-16); CHLORIDE 101 mmol/L (98-107); GLUCOSE 194 mg/dL (74-106); POTASSIUM 3.8 mmol/L (3.5-5.1); SODIUM SERUM 137 mmol/L (136-145); UREA NITROGEN, BLOOD 5 mg/dL (7-18)
--- NOTE | 2017-08-12 07:15 | NUR ---
RECEIVED REPORT FROM MADAI RN. PT RESTING IN BED. AAOX4. NO S/S OF ACUTE DISTRESS. PT STATES PAIN IS 8/10. PT PREVIOUSLY MEDICATED. IV SITE PATENT AND INTACT. TELE BOX IN PLACE. PLAN OF CARE DISCUSSED WITH PT. PT VERBALIZED UNDERSTANDING. CALL LIGHT WITHIN REACH. SAFETY MEASURES ENSURED. WILL CONTINUE TO MONITOR.
[2017-08-12 07:56] VITALS: BP 114/58
[2017-08-12] MEDS: LISINOPRIL 20 MG TAB PO SCH (08:30)
[2017-08-12] MEDS: FERROUS SULFATE 325 MG TABEC PO SCH (08:30)
[2017-08-12] MEDS: AMYLASE/LIPASE/PROTEASE 1 CAPDR PO SCH ×2 (08:30→11:48)
[2017-08-12] MEDS: PANTOPRAZOLE 40 MG TABEC PO SCH (08:31)
[2017-08-12] MEDS: ASCORBIC ACID 500 MG TAB PO SCH (08:31)
[2017-08-12] MEDS: HYDROCHLOROTHIAZIDE 25 MG TAB PO SCH (08:31)
[2017-08-12] MEDS: LACTOBACILLUS RHAMNOSUS GG 1 EACH CAP PO SCH (08:32)
--- NOTE | 2017-08-12 08:38 | NUR ---
AM MEDICATIONS GIVEN WITH EDUCATION. PT VERBALIZED UNDERSTANDING. PT TOLERATED WELL. WILL CONTINUE TO MONITOR.
[2017-08-12] MEDS ORDERED: DICYCLOMINE HCL LIQUID 20 MG, ALUMINUM HYD/MAG/SIMETHICONE 30 ML, LIDOCAINE VISCOUS 2% ... PO SCH ×3 (09:46)
--- NOTE | 2017-08-12 11:11 | NUR ---
PT RESTING IN BED. NO S/S OF ACUTE DISTRESS. PT DENIES PAIN. CALL LIGHT WITHIN REACH. SAFETY MEASURES ENSURED. WILL CONTINUE TO MONITOR.
--- NOTE | 2017-08-12 12:35 | NUR ---
RECEIVED REPORT FROM KAREL MAYEN. PT RESTING IN BED. AAOX4. NO S/S OF ACUTE DISTRESS. PT STATES PAIN IS 7/10. WILL MEDICATE WHEN DUE. IV SITE PATENT AND INTACT. MED SURG PT, PLAN OF CARE DISCUSSED WITH PT. PT VERBALIZED UNDERSTANDING. CALL LIGHT WITHIN REACH. SAFETY MEASURES ENSURED. WILL CONTINUE TO MONITOR.
--- NOTE | 2017-08-12 12:48 | NUR ---
ENDORSED PLAN OF CARE TO RN. PT REMAINS STABLE.
[2017-08-12] MEDS ORDERED: PANT40EC PO (14:00)
[2017-08-12] MEDS ORDERED: BEN10 PO (14:00)
[2017-08-12] MEDS ORDERED: INFLUENZA VIRUS VACCINE QUAD 0.5 ML SYR IMVAC SCH (15:20)
--- NOTE | 2017-08-12 15:35 | NUR ---
PT DISCHARGED TO HOME PER MD ORDER. PT IS IN STABLE CONDITION, NO S/S OF DISTRESS NOTED. DISCHARGE INSTRUCTIONS PROVIDED. PT VERBALIZED UNDERSTANDING. IV CATH REMOVED, TIP INTACT, PRESSURE APPLIED. PT LEFT WITH ALL HER BELONGINGS.
[2017-08-12] MEDS ORDERED: metFORMIN 500 MG TAB PO SCH (17:00)
[2017-08-15 15:09] LABS: T4 (THYROXINE) 6.6 ug/dL (4.5-12.0)
== END 2017-08-12 15:30 | disposition home or self-care (01) | DRG 391 ==
LOC: MED 20:36 → MTU 23:30
PROVIDERS: ADMIT Family Medicine Sports Medicine; ATTEND Family Medicine Sports Medicine
PROC: 3E0234Z Introduction of Serum, Toxoid and Vaccine into Muscle, Percutaneous Approach (ICD-10-PCS; principal; 2017-08-12)
DX: K52.9 Noninfective gastroenteritis and colitis, unspecified (principal); N17.0 Acute kidney failure with tubular necrosis; D68.59 Other primary thrombophilia; E11.51 Type 2 diabetes mellitus with diabetic peripheral angiopathy without gangrene; E11.22 Type 2 diabetes mellitus with diabetic chronic kidney disease; E87.1 Hypo-osmolality and hyponatremia; I24.9 Acute ischemic heart disease, unspecified; K86.1 Other chronic pancreatitis; N39.0 Urinary tract infection, site not specified; K31.84 Gastroparesis; I25.10 Atherosclerotic heart disease of native coronary artery without angina pectoris; K21.0 Gastro-esophageal reflux disease with esophagitis; K29.50 Unspecified chronic gastritis without bleeding; K44.9 Diaphragmatic hernia without obstruction or gangrene; F41.1 Generalized anxiety disorder; E11.9 Type 2 diabetes mellitus without complications; D64.9 Anemia, unspecified; Y92.89 Other specified places as the place of occurrence of the external cause; G89.4 Chronic pain syndrome; M19.90 Unspecified osteoarthritis, unspecified site; I12.9 Hypertensive chronic kidney disease with stage 1 through stage 4 chronic kidney disease, or unspecified chronic kidney disease; N18.9 Chronic kidney disease, unspecified; E87.8 Other disorders of electrolyte and fluid balance, not elsewhere classified; T40.605A Adverse effect of unspecified narcotics, initial encounter; E78.5 Hyperlipidemia, unspecified; Z88.6 Allergy status to analgesic agent; Z88.8 Allergy status to other drugs, medicaments and biological substances; Z88.1 Allergy status to other antibiotic agents; Z87.442 Personal history of urinary calculi; Z90.710 Acquired absence of both cervix and uterus; Z90.49 Acquired absence of other specified parts of digestive tract; Z79.899 Other long term (current) drug therapy; Z83.3 Family history of diabetes mellitus; Z82.49 Family history of ischemic heart disease and other diseases of the circulatory system; Z80.0 Family history of malignant neoplasm of digestive organs; Z80.8 Family history of malignant neoplasm of other organs or systems; Z82.3 Family history of stroke; Z76.5 Malingerer [conscious simulation]; Z23 Encounter for immunization
CPT/HCPCS: 36415; 80048; 80053; 81001; 82150; 82948; 83036; 83690; 83735; 83880; 84100; 84436; 84439; 84443; 84479; 85025; 85610; 85730; 87081; 87086; 90658; 93925; 93970; 96365; 96375; 96376; 99285; J0696; J1170; J1956; J2270; J2405; J7030; J7060; Q0092; Q9967